=== PATIENT | male | born 1975 | race Caucasian/White ===

== ENCOUNTER 2018-05-08 17:23 | Observation (INO) ==
--- NOTE | 2018-05-08 17:32 | Emergency Department Note ---
ED Disposition Clinical Impression: Dehydration, Loss of consciousness Acute renal failure Qualifiers: Acute renal failure type: unspecified Qualified Code(s): N17.9 - Acute kidney failure, unspecified Scalp laceration Qualifiers: Encounter type: initial encounter Qualified Code(s): S01.01XA - Laceration without foreign body of scalp, initial encounter Disposition: Still a Patient Condition on Discharge: [facility] - Critical Care Critical Care Time: No Attestation: On , the high probability of a clinically significant, sudden or life threatening deterioration of the following system(s) required my full and direct attention, intervention and personal management. The time I documented below is in addition to time spent performing reported procedures but includes the following listed in this critical care notation. Medical Decision Making - Cuong Inquiry Pt receiving controlled substance: No Cuong was queried for this patient: Yes Reference #:: [id number] Comment: 0 rxs. Vital Signs: 05/08/18 17:24 Temperature 98.0 F Temperature Source Oral Pulse Rate [Right Brachial] 128 H Respiratory Rate 18 Blood Pressure [179/102] 179/102 Blood Pressure Mean [179/102] 127 Blood Pressure Source [179/102] Automatic Cuff Blood Pressure Position [179/102] Sitting 02 Sat by Pulse Oximetry 97 Oxygen Delivery Method Room Air - Lab Data Lab Results 05/08/18 17:50: WBC 11.7 H, RBC 5.53, Hgb 16.1, Hct 48.5, MCV 87.7, MCH 29.1, MCHC 33.2, RDW 13.5, Plt Count 216, MPV 10.2, Neut % (Auto) 54.2, Lymph % (Auto ) 29.6, [facility] % (Auto) 14.7 H, Eos % (Auto) 1.2, Baso % (Auto) 0.3, Neut # (Auto ) 6.4, Lymph # (Auto) 3.5, [facility] # (Auto) 1.7 H, Eos # (Auto) 0.1, Baso # (Auto) 0.0 05/08/18 17:50: Sodium 135 L, Potassium 3.3 L, Chloride 99, Carbon Dioxide 19 L , Anion Gap 20.3 H, BUN 29 H, Creatinine 2.30 H, Estimated Creat Clear 53, Estimated GFR 31 L, Est GFR ( Amer) 38 L, Glucose 156 H, Calcium 9.9, Total Bilirubin 1.4 H, AST 30, ALT 39, Alkaline Phosphatase 86, Total Protein 9.3 H, Albumin 5.1 H, Globulin 4.2 H, Albumin/Globulin Ratio 1.2, Lipase 90, Plasma/Serum Alcohol 0 05/08/18 17:50: Ammonia 64 H 05/08/18 17:50: Lactic Acid 5.6 H 05/08/18 17:50: Total Creatine Kinase 553 H*, CK-MB (CK-2) 2.6, CK-MB (CK-2) Rel Index 0.5, Troponin I < 0.02 Result diagrams: 05/08/18 17:50 05/08/18 17:50 Orders (Tests/Meds): ED MEDICATIONS Discontinued Medications Generic Name Dose Route Start Last Admin Trade Name Freq PRN Reason Stop Dose Admin Lidocaine/Epinephrine 10 ml 05/08/18 17:39 05/08/18 17:45 Lidocaine 2% W/Epi 1:100,000 20ml Vial IJ 05/08/18 17:40 1 dose ONCE ONE Administration Sodium Chloride 1,000 ml 05/08/18 18:22 05/08/18 18:30 Sod Chlor 0.9% 1000ml Bag IV 05/08/18 18:23 1,000 ml BOLUS ONE Administration Tetanus/Reduced Diphtheria/Acell Pertussis 0.5 ml 05/08/18 17:33 05/08/18 17: 44 Adacel Tdap 0.5ml Syringe IM 05/08/18 17:34 0.5 ml .ONCE ONE Administration ORDERS Category Date Time Status CT head/brain wo con Stat Cat Scan 05/08/18 17:30 Taken Drug Screen,Urine Stat Lab 05/08/18 Ordered Blood Culture Stat Micro 05/08/18 17:50 Received - CT Data CT Scan: Head Time Received: 18:[address] Reviewed: Yes: I have viewed the radiologist's interpretation Findings Narrative: CT scan interpreted by [facility] radiologist. Faxed report received and reviewed: No acute intracranial abnormality - ECG Data Tracing #1 EKG interpreted by Desmond Quinteros MD: Rhythm: sinus Rate: 97 [place]: normal Ectopy: none Conduction: normal ST Segment Changes: none T Wave Changes: none Q Waves: Inferior No evidence of acute ischemia or injury - Physician Consults Physician Consulted: Gabby Time: 19:20 Reason -: Admission Comment/Response: Agrees to admit the patient to the hospital. We discussed the patient's clinical information, including history, exam, laboratory and radiology results and ED course. Per hospital procedure, I will write temporary bridge inpatient orders on the patient. Specific orders requested by the admitting physician: Continue IV fluids, recheck labs in the morning General Adult HPI - General Chief complaint: Altered Mental Status Stated complaint: OD VS SEIZURE Time Seen by Provider: 05/08/18 17:32 Mode of Arrival: EMS Limitations: No Limitations Description of Symptoms (Recalled from ER Triage Doc. by RN): PT FOUND "UNRESPONSIVE" IN PARKING LOT; WITNESSES THOUGHT MAYBE HAD HAD A SEIZURE BUT HE THEN WAS FOUND TO HAVE METH ON HIS LAP. PT FURTHER STATES HE IS "OK" - History of Present Illness HPI narrative: Poor historian and difficult to understand. Rapid speech. Brought in by EMS. Suspected seizure. Patient states somebody told him they thought he had a seizure. Details unknown. EMS reports that they found him in a parking lot in a state that they thought might be post ictal. He was not making any sense. Has a small laceration of the back of his head. Patient does not recall what happened. Police reportedly stated that that they found "meth" in his lap, but the patient denies any drug use except taking a pill from a friend today. He states that he is on medications, but has been out of them for 1 month. He smokes cigarettes. Denies using any alcohol for years. He has never had a seizure. He does not know when his last tetanus immunization was. Frequently complaining of excessively dry mouth and extreme thirst in the emergency room. - Related Data Allergies Allergy/AdvReac Type Severity Reaction Status Date / Time hydrocodone [HYDROCODONE] Allergy Unknown Verified 05/08/18 17:44 Penicillins [PENICILLINS] Allergy Unknown Verified 05/08/18 17:44 [facility] History I have reviewed the patient's past medical history: Yes - Social History Alcohol Intake: former Alcohol Intake Frequency:: holidays/special occasions only Substance Use Type: methamphetamine - Psychiatric History Expresses thoughts of harming self/others: None Suicide Plan Description: No Plan ROS Obtained: Yes All systems reviewed & no additional complaints - Constitutional Constitutional: Denies fever(s) - Eyes Eyes: Denies change in vision - Cardiovascular Cardiovascular: Denies chest pain - Respiratory Respiratory: No dyspnea - Gastrointestinal Gastrointestingal: Denies: abdominal pain, diarrhea, nausea, vomiting - Neurologic Neurologic: Denies headache(s), Denies numbness, Denies weakness Physical Exam - General General appearance: alert, in no apparent distress, anxious Comment: Rapid speech, difficult to understand - Head Head exam: other (4 cm laceration on the crown of his head. [place] intact.) - Eye Eye exam: Present: normal appearance, PERRL, EOMI - ENT ENT exam: Present: normal exam, normal oropharynx, mucous membranes moist, TM's normal bilaterally, normal external ear exam - Neck Neck exam: Present: normal inspection, full ROM, trachea midline. Absent: meningismus, lymphadenopathy - Chest Chest inspection: Present: normal inspection, symmetric chest wall rise. Absent : tenderness - Respiratory Respiratory exam: Present: normal lung sounds bilaterally. Absent: respiratory distress - Cardiovascular Cardiovascular exam: Present: normal rhythm, tachycardia. Absent: JVD - Abdominal Exam Abdominal exam: Present: soft, normal bowel sounds. Absent: distention, tenderness, guarding - Extremities Exam Extremities exam: Present: normal inspection, full ROM, normal capillary refill. Absent: calf tenderness - Back Exam Back exam: Present: normal inspection. Absent: tenderness - Neurological Exam Neurological exam: Present: alert, CN II-XII intact, motor sensory deficit, other (Oriented to person and place, states he does not keep up with the year or date) - Psychiatric Psychiatric exam: Present: anxious - Skin Skin exam: Present: warm, dry, intact, normal color - Lymphatic Lymphatic Findings: no adenopathy Procedures - Miscellaneous Procedure Procedure Performed: Laceration Repair Performed by: DESMOND QUINTEROS Consent: Verbal consent obtained. Risks and benefits: risks, benefits and alternatives were discussed Consent given by: patient Patient identity confirmed: verbally with patient Laceration location: Scalp Laceration length: 4 cm Local anesthetic: 2% lidocaine with epinephrine Wound prep: Sterilly scrubbed with Hibiclens and irrigated with copious normal saline. Draping: Sterile in usual manner Patient sedated: no Debridement: None Exploration: No foreign bodies or deep structure injury Layers Closed: Skin Suture material, skin: [place] Number of sarah:10 Patient tolerance: Patient tolerated the procedure well with no immediate complications
[2018-05-08 18:00] LABS: Basophils % 0.3 % (0.1-2.0); Eosinophils # 0.1 K/mm3 (0.0-0.4); Eosinophils % 1.2 % (0.1-12.0); Hematocrit 48.5 % (42.0-52.0); Hemoglobin 16.1 g/dL (14.1-18.0); Lymphocytes # 3.5 K/mm3 (0.7-4.5); Lymphocytes % 29.6 K/mm3 (10-50); Mean Corpuscular HGB Conc 33.2 g/dL (31.8-35.4); Mean Corpuscular Hemoglobin 29.1 pg (27.0-31.2); Mean Corpuscular Volume 87.7 fl (80-94); Mean Platelet Volume 10.2 fl (7.4-10.4); Monocytes # 1.7 K/mm3 (0.1-1.0); Monocytes % 14.7 % (1.7-9.3); Neutrophils # 6.4 K/mm3 (1.8-7.8); Neutrophils % 54.2 % (37.0-80.0); Platelet Count 216 K/mm3 (142-424); Red Blood Count 5.53 M/mm3 (4.60-6.20); Red Cell Distribution Width 13.5 % (11.5-17.5); White Blood Count 11.7 K/mm3 (4.8-10.8)
[2018-05-08 18:15] LABS: Albumin Level 5.1 gm/dL (3.4-5.0); Albumin/Globulin Ratio 1.2 (1.1-1.8); Anion Gap 20.3 mEq/L (5-15); Bilirubin,Total 1.4 mg/dL (0.2-1.0); Calcium 9.9 mg/dL (8.5-10.1); Globulin 4.2 gm/dl (1.3-3.2); Potassium 3.3 mmoL/L (3.5-5.1); Total Protein,Serum 9.3 gm/dL (6.4-8.2)
[2018-05-08 18:23] LABS: Creatine Kinase 553 U/L (39-308)
[2018-05-08 23:39] LABS: Amphetamine/Metha Screen,Urine Positive ng/mL (<1000); Barbiturates Screen,Urine Negative ng/mL (<200); Benzodiazepines Screen,Urine Negative ng/mL (<200); Cannabinoid Screen,Urine Negative ng/mL (<50); Cocaine Screen,Urine Negative ng/mL (<300); Methadone Screen,Urine Negative ng/mL (<300); Opiate Screen,Urine Negative ng/mL (<300); Phencyclidine Screen,Urine Negative ng/mL (<25)
[2018-05-09 06:34] LABS: Anion Gap 12.9 mEq/L (5-15)
[2018-05-09 06:39] LABS: Potassium 2.9 mmoL/L (3.5-5.1)
--- NOTE | 2018-05-09 07:50 | Pharmacy Consult Notes ---
[facility] Pharmacy VTE Monitoring - Patient Demographics Admission date: 05/08/18 Report Date: 05/09/18 Time: 07:50 Allergies/Adverse Reactions: Patient Allergies hydrocodone [HYDROCODONE] Allergy (Unknown, Verified 05/08/18 17:44) Penicillins [PENICILLINS] Allergy (Unknown, Verified 05/08/18 17:44) Height: 1.85 m Weight: 101.605 kg Patient Problems: Current Active Problems Acute renal failure (Acute) Dehydration (Acute) Loss of consciousness (Acute) Scalp laceration (Acute) - VTE Risk Labs: VTE Related Lab Results Hgb 16.1 g/dL (14.1-18.0) 05/08/18 17:50 Hct 48.5 % (42.0-52.0) 05/08/18 17:50 Plt Count 216 K/mm3 (142-424) 05/08/18 17:50 BUN 16 mg/dL (7-18) D 05/09/18 05:58 Creatinine 1.17 mg/dL (0.70-1.30) D 05/09/18 05:58 Estimated Creat Clear 117 mL/min (0-300) 05/09/18 05:58 VTE Score: 5 VTE Risk Level: Low Risk - Prophylaxis VTE Prophylaxis Ordered?: Yes Types of VTE Prophylaxis: TEDS Knee High Location of Applied Device: Bilateral Lower Extremeties - VTE Diagnosis Confirmed Treatment or plan recommended: Continue Current Treatment
--- NOTE | 2018-05-09 09:20 | History & Physical Report ---
*Admission Date: 05/08/18 <Fiona Liao 05/09/18 09:20> *Chief complaint: headache <Fiona Liao 05/09/18 13:07> *History of present illness: Mr. Avina is a 43-year-old male who is brought to the hospital by EMS. Following note is from the ER Patient remains a poor historian. He has rambling speech and is difficult to understand. Brought in by EMS. Suspected seizure. Patient stated somebody told him they thought he had a seizure. Details unknown. EMS reports that they found him in a parking lot in a state that they thought might be post ictal. He was not making any sense. A small laceration of the back of his head was noted. Patient does not recall what happened. Police reportedly stated that that they found "meth" in his lap, but the patient denies any drug use except taking a pill from a friend today. He states that he is on medications, but has been out of them for 1 month. He smokes cigarettes. Denies using any alcohol for years. He has never had a seizure. He does not know when his last tetanus immunization was. Frequently complaining of excessively dry mouth and extreme thirst in the emergency room. He had a small laceration to the top of his head which was stapled in the emergency room. CT of the head was negative. He was admitted for further evaluation and treatment. This a.m. at time of exam patient is very agitated. Speech remains rambling and unclear. He denies chest pain and shortness of breath. He states that he has a headache. He request medicines but does not know what medicine he needs. <KeshawnFiona 05/09/18 13:07> [facility] History Medical History: Reports:: Asthma, Depression, Hypertension, MRSA (right arm) Denies:: Cancer, Diabetes Mellitus Type 1, Diabetes Mellitus Type 2 < Fiona Liao 05/09/18 13:07> Other Surgeries: Yes: Hernia Repair <Fiona Liao 05/09/18 09:20> Amputation: No <Fiona Liao 05/09/18 09:20> Fractures: No <Fiona Liao 05/09/18 09:20> - *Social History Educational Level: Attended Grade School <Fiona Liao 05/09/18 09:20> Smoking Status: Current every day smoker <LiaoFiona - 05/09/18 09:20> Tobacco Type: cigarettes <LiaoFiona 05/09/18 09:20> # Packs/Day (cigarettes): 1 <LiaoFiona - 05/09/18 09:20> #Yrs smoked (if former smoker): 30 <Liao,Fiona 05/09/18 09:20> Alcohol Intake: former <Fiona Liao 05/09/18 09:20> Alcohol Intake Frequency:: holidays/special occasions only <Liao,Fiona 09:20> Substance Use Type: painkillers <Fiona Liao 05/09/18 09:20> Last Used Substance: days (ago) <Fiona Liao 05/09/18 09:20> Occupational Status: disabled <Fiona Liao 05/09/18 09:20> Housing: house <Fiona Liao 05/09/18 09:20> Household Members: family <LiaoFiona - 05/09/18 09:20> - Psychiatric History Expresses thoughts of harming self/others: None <Fiona Liao 05/09/18 09: 20> Suicide Plan Description: No Plan <Fiona Liao 05/09/18 09:20> Pschychiatric History:: Reports:: Schizophrenia <Fiona Liao 05/09/18 13: 07> *Family Hx:: Unable to obtain <Fiona Laio 05/09/18 13:07> Review of Systems - *Neurologic Denies headache(s), Denies numbness, Denies weakness <Fiona Liao 09:20> Meds Home Medications Medication Instructions Recorded Confirmed Type Buspirone HCl [Buspar 10mg tablet] 10 mg PO BID 05/08/18 05/08/18 History Fluoxetine HCl [Prozac] 40 mg PO DAILY 05/08/18 05/08/18 History Metoprolol Tartrate [Lopressor 25 mg PO BID 05/08/18 05/08/18 History 25mg tablet] OLANZapine [Zyprexa] 15 mg PO HS 05/08/18 05/08/18 History Omeprazole [Omeprazole 20mg Tab] 20 mg PO DAILY 05/08/18 05/08/18 History <Raman Pierre - 05/09/18 13:24> Allergies Allergy/AdvReac Type Severity Reaction Status Date / Time hydrocodone [HYDROCODONE] Allergy Unknown Verified 05/08/18 17:44 Penicillins [PENICILLINS] Allergy Unknown Verified 05/08/18 17:44 <Raman Pierre - 05/09/18 13:24> Exam Vital signs and Labs for Last 24 Hours: Temp Pulse Resp BP Pulse Ox 98.5 F 101 H 20 116/78 98 05/09/18 08:00 05/09/18 08:00 05/09/18 08:00 05/09/18 08:00 05/09/18 08:00 Laboratory Results - last 24 hr 05/08/18 17:50: WBC 11.7 H, RBC 5.53, Hgb 16.1, Hct 48.5, MCV 87.7, MCH 29.1, MCHC 33.2, RDW 13.5, Plt Count 216, MPV 10.2, Neut % (Auto) 54.2, Lymph % (Auto ) 29.6, [place] % (Auto) 14.7 H, Eos % (Auto) 1.2, Baso % (Auto) 0.3, Neut # (Auto ) 6.4, Lymph # (Auto) 3.5, [place] # (Auto) 1.7 H, Eos # (Auto) 0.1, Baso # (Auto) 0.0 05/08/18 17:50: Sodium 135 L, Potassium 3.3 L, Chloride 99, Carbon Dioxide 19 L , Anion Gap 20.3 H, BUN 29 H, Creatinine 2.30 H, Estimated Creat Clear 53, Estimated GFR 31 L, Est GFR ( Amer) 38 L, Glucose 156 H, Calcium 9.9, Total Bilirubin 1.4 H, AST 30, ALT 39, Alkaline Phosphatase 86, Total Protein 9.3 H, Albumin 5.1 H, Globulin 4.2 H, Albumin/Globulin Ratio 1.2, Lipase 90, Plasma/Serum Alcohol 0 05/08/18 17:50: Ammonia 64 H 05/08/18 17:50: Lactic Acid 5.6 H 05/08/18 17:50: Total Creatine Kinase 553 H*, CK-MB (CK-2) 2.6, CK-MB (CK-2) Rel Index 0.5, Troponin I < 0.02 05/08/18 21:50: Lactic Acid Fup @ 4Hr 1.4 05/08/18 23:15: Urine Opiates Screen Negative, Urine Methadone Screen Negative, Ur Barbituates Screen Negative, Ur Phencyclidine Scrn Negative, Ur Amphetamines Screen Positive H, U Benzodiazepines Scrn Negative, Urine Cocaine Screen Negative, U Marijuana (THC) Screen Negative 05/09/18 05:58: Sodium 136, Potassium 2.9 L*, Chloride 103, Carbon Dioxide 23 D , Anion Gap 12.9, BUN 16 D, Creatinine 1.17 D, Estimated Creat Clear 117, Estimated GFR 68, Est GFR ( Amer) 82 D, Glucose 111 H D, Calcium 8.0 L D <Raman Pierre - 05/09/18 13:24> Temp Pulse Resp BP Pulse Ox 98.5 F 101 H 20 116/78 98 05/09/18 08:00 05/09/18 08:00 05/09/18 08:00 05/09/18 08:00 05/09/18 08:00 Laboratory Results - last 24 hr 05/08/18 17:50: WBC 11.7 H, RBC 5.53, Hgb 16.1, Hct 48.5, MCV 87.7, MCH 29.1, MCHC 33.2, RDW 13.5, Plt Count 216, MPV 10.2, Neut % (Auto) 54.2, Lymph % (Auto ) 29.6, [place] % (Auto) 14.7 H, Eos % (Auto) 1.2, Baso % (Auto) 0.3, Neut # (Auto ) 6.4, Lymph # (Auto) 3.5, [place] # (Auto) 1.7 H, Eos # (Auto) 0.1, Baso # (Auto) 0.0 05/08/18 17:50: Sodium 135 L, Potassium 3.3 L, Chloride 99, Carbon Dioxide 19 L , Anion Gap 20.3 H, BUN 29 H, Creatinine 2.30 H, Estimated Creat Clear 53, Estimated GFR 31 L, Est GFR ( Amer) 38 L, Glucose 156 H, Calcium 9.9, Total Bilirubin 1.4 H, AST 30, ALT 39, Alkaline Phosphatase 86, Total Protein 9.3 H, Albumin 5.1 H, Globulin 4.2 H, Albumin/Globulin Ratio 1.2, Lipase 90, Plasma/Serum Alcohol 0 05/08/18 17:50: Ammonia 64 H 05/08/18 17:50: Lactic Acid 5.6 H 05/08/18 17:50: Total Creatine Kinase 553 H*, CK-MB (CK-2) 2.6, CK-MB (CK-2) Rel Index 0.5, Troponin I < 0.02 05/08/18 21:50: Lactic Acid Fup @ 4Hr 1.4 05/08/18 23:15: Urine Opiates Screen Negative, Urine Methadone Screen Negative, Ur Barbituates Screen Negative, Ur Phencyclidine Scrn Negative, Ur Amphetamines Screen Positive H, U Benzodiazepines Scrn Negative, Urine Cocaine Screen Negative, U Marijuana (THC) Screen Negative 05/09/18 05:58: Sodium 136, Potassium 2.9 L*, Chloride 103, Carbon Dioxide 23 D , Anion Gap 12.9, BUN 16 D, Creatinine 1.17 D, Estimated Creat Clear 117, Estimated GFR 68, Est GFR ( Amer) 82 D, Glucose 111 H D, Calcium 8.0 L D <Fiona Liao - 05/09/18 13:07> I & O for Last 24 hours: Intake & Output 05/07/18 05/08/18 05/09/18 05/10/18 11:59 11:59 11:59 11:59 Intake Total 1748 / 1748 Output Total 800 / 800 Balance 948 / 948 Weight 224 lb <Stanton,Raman - 05/09/18 13:24> Intake & Output 05/06/18 05/07/18 05/08/18 05/09/18 11:59 11:59 11:59 11:59 Intake Total 1678 / 1678 Output Total 800 / 800 Balance 878 / 878 Weight 224 lb <Fiona Liao - 05/09/18 09:20> Radiology Reports for the Last 24 Hours: 05/08/18 CT of the head IMPRESSION: 1. No acute intracranial finding. 2. Left parietal scalp hematoma with skin sarah <Fiona Liao - 05/09/18 13:07> - Constitutional agitated <Fiona Liao - 05/09/18 13:07> - *Routine HEENT Exam Head: Present: normocephalic ([place] in top of the head) <Fiona Liao - 12/26 13:07> Comments: unable to exam at this time due to agitation <Fiona Liao 05/09/18 13:07> - *Routine Respiratory Exam Present: CTA bilaterally (A&P) <Fiona Liao 05/09/18 13:07> - *Routine Cardiovascular Exam Present: RRR <Fiona Liao 05/09/18 13:07> - *Routine Extremities Exam Absent: edema, calf tenderness <Fiona Liao 05/09/18 13:07> - *Routine Neurological Exam Present: altered mental status, tremors. Absent: normal speech <Fiona Liao 05/09/18 13:07> rambling unclear speech <Fiona Liao 05/09/18 13:07> - Routine Psychiatric Exam Present: agitated <Fiona Liao 05/09/18 13:07> H&P: Result - Labs Labs: Short CBC 05/08/18 Range/Units 17:50 WBC 11.7 H (4.8-10.8) K/mm3 Hgb 16.1 (14.1-18.0) g/dL Hct 48.5 (42.0-52.0) % Plt Count 216 (142-424) K/mm3 BMP 05/08/18 05/09/18 17:50 05:58 Sodium 135 L 136 Potassium 3.3 L 2.9 L* Chloride 99 103 Carbon Dioxide 19 L 23 D BUN 29 H 16 D Creatinine 2.30 H 1.17 D Glucose 156 H 111 H D Calcium 9.9 8.0 L D Cardiac Enzymes 05/08/18 Range/Units 17:50 Total Creatine Kinase 553 H* (39-308) U/L CK-MB (CK-2) 2.6 (0.0-3.6) ng/ml Troponin I < 0.02 (0.00-0.06) ng/ml Liver Function 05/08/18 Range/Units 17:50 Total Bilirubin 1.4 H (0.2-1.0) mg/dL AST 30 (15-37) U/L ALT 39 (12-78) U/L Alkaline Phosphatase 86 (46-116) U/L Albumin 5.1 H (3.4-5.0) gm/dL <Raman Pierre - 05/09/18 13:24> Short CBC 05/08/18 Range/Units 17:50 WBC 11.7 H (4.8-10.8) K/mm3 Hgb 16.1 (14.1-18.0) g/dL Hct 48.5 (42.0-52.0) % Plt Count 216 (142-424) K/mm3 BMP 05/08/18 05/09/18 17:50 05:58 Sodium 135 L 136 Potassium 3.3 L 2.9 L* Chloride 99 103 Carbon Dioxide 19 L 23 D BUN 29 H 16 D Creatinine 2.30 H 1.17 D Glucose 156 H 111 H D Calcium 9.9 8.0 L D Cardiac Enzymes 05/08/18 Range/Units 17:50 Total Creatine Kinase 553 H* (39-308) U/L CK-MB (CK-2) 2.6 (0.0-3.6) ng/ml Troponin I < 0.02 (0.00-0.06) ng/ml Liver Function 05/08/18 Range/Units 17:50 Total Bilirubin 1.4 H (0.2-1.0) mg/dL AST 30 (15-37) U/L ALT 39 (12-78) U/L Alkaline Phosphatase 86 (46-116) U/L Albumin 5.1 H (3.4-5.0) gm/dL <Fiona Liao - 05/09/18 09:20> Assessment and Plan (1) Agitation Current visit: Yes Status: Acute Category: Medical Code(s): R45.1 - Restlessness and agitation (2) Loss of consciousness Current visit: Yes Status: Acute Category: Medical Code(s): R40.20 - Unspecified coma (3) HTN (hypertension) Current visit: Yes Status: Acute Category: Medical Code(s): I10 - Essential (primary) hypertension (4) Dehydration Current visit: Yes Status: Acute Category: Medical Code(s): E86.0 - Dehydration (5) Hypokalemia Current visit: Yes Status: Acute Category: Medical Code(s): E87.6 - Hypokalemia (6) Scalp laceration Current visit: Yes Status: Acute Qualifiers: Encounter type: initial encounter Qualified Code(s): S01.01XA - Laceration without foreign body of scalp, initial encounter Category: Medical Code(s): S01.01XA - Laceration without foreign body of scalp , initial encounter (7) FRANKI (acute kidney injury) Current visit: Yes Status: Acute Category: Medical Code(s): N17.9 - Acute kidney failure, unspecified (8) Methamphetamine abuse Current visit: Yes Status: Acute Category: Medical Code(s): F15.10 - Other stimulant abuse, uncomplicated (9) Psychiatric disorder Current visit: Yes Status: Acute Category: Medical Code(s): F99 - Mental disorder, not otherwise specified <Raman Pierre - 05/09/18 13:24> (1) Agitation Current visit: Yes Status: Acute Category: Medical Code(s): R45.1 - Restlessness and agitation (2) Loss of consciousness Current visit: Yes Status: Acute Category: Medical Code(s): R40.20 - Unspecified coma (3) HTN (hypertension) Current visit: Yes Status: Acute Category: Medical Code(s): I10 - Essential (primary) hypertension (4) Dehydration Current visit: Yes Status: Acute Category: Medical Code(s): E86.0 - Dehydration (5) Hypokalemia Current visit: Yes Status: Acute Category: Medical Code(s): E87.6 - Hypokalemia (6) Scalp laceration Current visit: Yes Status: Acute Qualifiers: Encounter type: initial encounter Qualified Code(s): S01.01XA - Laceration without foreign body of scalp, initial encounter Category: Medical Code(s): S01.01XA - Laceration without foreign body of scalp , initial encounter <Fiona Liao - 05/09/18 12:38> - Assessment and plan all Dx Assessment and Plan for all problems:: Saw patient agree with above note, Renal function has improved with IVF, patient is calmer now after receiving Ativan. <Raman Pierre - 05/09/18 13:24> IVF; IV KCL; IV Ativan prn; started back on some of previous regular meds <Fiona Liao - 05/09/18 13:07>
[2018-05-10 06:29] LABS: Basophils % 0.6 % (0.1-2.0); Eosinophils # 0.3 K/mm3 (0.0-0.4); Eosinophils % 5.6 % (0.1-12.0); Hematocrit 38.4 % (42.0-52.0); Hemoglobin 12.4 g/dL (14.1-18.0); Lymphocytes % 41.9 K/mm3 (10-50); Mean Corpuscular HGB Conc 32.4 g/dL (31.8-35.4); Mean Corpuscular Hemoglobin 28.9 pg (27.0-31.2); Mean Corpuscular Volume 89.3 fl (80-94); Mean Platelet Volume 10.5 fl (7.4-10.4); Monocytes # 0.5 K/mm3 (0.1-1.0); Neutrophils % 40.8 % (37.0-80.0); Platelet Count 112 K/mm3 (142-424); Red Cell Distribution Width 13.4 % (11.5-17.5); White Blood Count 4.8 K/mm3 (4.8-10.8)
[2018-05-10 06:38] LABS: Anion Gap 10.8 mEq/L (5-15); Calcium 8.1 mg/dL (8.5-10.1); Potassium 3.8 mmoL/L (3.5-5.1)
[2018-05-10 08:37] VITALS: BP 108/69
--- NOTE | 2018-05-10 09:03 | Progress Note ---
Internal Medicine - PN: Subj *Date: 05/10/18 *Time: 09:01 Interval history: Patient had a much better night last night, tolerating a regular diet, slept well. Exam Vital signs and Labs for Last 24 Hours: Temp Pulse Resp BP Pulse Ox 97.5 F L 71 20 108/69 98 05/10/18 08:00 05/10/18 08:00 05/10/18 08:00 05/10/18 08:00 05/10/18 08:00 Laboratory Results - last 24 hr 05/10/18 06:08: WBC 4.8 D, RBC 4.30 L, Hgb 12.4 L, Hct 38.4 L, MCV 89.3, MCH 28.9, MCHC 32.4, RDW 13.4, Plt Count 112 L D, MPV 10.5 H, Neut % (Auto) 40.8, Lymph % (Auto) 41.9, [place] % (Auto) 11.0 H, Eos % (Auto) 5.6, Baso % (Auto) 0.6, Neut # (Auto) 2.0, Lymph # (Auto) 2.0, [place] # (Auto) 0.5, Eos # (Auto) 0.3, Baso # (Auto) 0.0 05/10/18 06:08: Sodium 140, Potassium 3.8 D, Chloride 108 H, Carbon Dioxide 25 , Anion Gap 10.8, BUN 10 D, Creatinine 0.97, Estimated Creat Clear 141, Estimated GFR 84, Est GFR ( Amer) 102 D, Glucose 108 H, Calcium 8.1 L I & O for Last 24 hours: Intake & Output 05/07/18 05/08/18 05/09/18 05/10/18 11:59 11:59 11:59 11:59 Intake Total 1748 / 1748 3275 / 3275 Output Total 800 / 800 Balance 948 / 948 3275 / 3275 Weight 224 lb - Constitutional no acute distress - *Routine HEENT Exam ENT: Present: mucous membranes moist - *Routine Respiratory Exam Present: CTA bilaterally - *Routine Cardiovascular Exam Present: RRR Assessment and Plan (1) Agitation Current visit: Yes Status: Acute Category: Medical Code(s): R45.1 - Restlessness and agitation (2) Loss of consciousness Current visit: Yes Status: Acute Category: Medical Code(s): R40.20 - Unspecified coma (3) HTN (hypertension) Current visit: Yes Status: Acute Category: Medical Code(s): I10 - Essential (primary) hypertension (4) Dehydration Current visit: Yes Status: Acute Category: Medical Code(s): E86.0 - Dehydration (5) Hypokalemia Current visit: Yes Status: Acute Category: Medical Code(s): E87.6 - Hypokalemia (6) Scalp laceration Current visit: Yes Status: Acute Qualifiers: Encounter type: initial encounter Qualified Code(s): S01.01XA - Laceration without foreign body of scalp, initial encounter Category: Medical Code(s): S01.01XA - Laceration without foreign body of scalp , initial encounter (7) FRANKI (acute kidney injury) Current visit: Yes Status: Acute Category: Medical Code(s): N17.9 - Acute kidney failure, unspecified (8) Methamphetamine abuse Current visit: Yes Status: Acute Category: Medical Code(s): F15.10 - Other stimulant abuse, uncomplicated (9) Psychiatric disorder Current visit: Yes Status: Acute Category: Medical Code(s): F99 - Mental disorder, not otherwise specified - Assessment and plan all Dx Assessment and Plan for all problems:: Labs have improved. Patient OK for discharge today. He needs to f/u with his primary MD for staple removal from scalp in 1 week.
--- NOTE | 2018-05-10 16:14 | Discharge Summary ---
General - General Admission date:: 05/08/18 Discharge date: 05/10/18 HPI HPI: Mr. Avina is a 43-year-old male who is brought to the hospital by EMS. Following note is from the ER Patient remains a poor historian. He has rambling speech and is difficult to understand. Brought in by EMS. Suspected seizure. Patient stated somebody told him they thought he had a seizure. Details unknown. EMS reports that they found him in a parking lot in a state that they thought might be post ictal. He was not making any sense. A small laceration of the back of his head was noted. Patient does not recall what happened. Police reportedly stated that that they found "meth" in his lap, but the patient denies any drug use except taking a pill from a friend today. He states that he is on medications, but has been out of them for 1 month. He smokes cigarettes. Denies using any alcohol for years. He has never had a seizure. He does not know when his last tetanus immunization was. Frequently complaining of excessively dry mouth and extreme thirst in the emergency room. He had a small laceration to the top of his head which was stapled in the emergency room. CT of the head was negative. He was admitted for further evaluation and treatment. This a.m. at time of exam patient is very agitated. Speech remains rambling and unclear. He denies chest pain and shortness of breath. He states that he has a headache. He request medicines but does not know what medicine he needs. Hospital Course Hospital Course: The patient's potassium was low at 2.9. He was started on IVF, IV KCL,IV Ativan prn, and was started back on some of his previous regular meds. The patient's potassium improved and he felt much better by the next day. He was tolerating a diet and the rest of his labs improved as well. He was stable for discharge and will f/u with his primary MD for staple removal from scalp in 1 week. Objective Vital signs: Temp Pulse Resp BP Pulse Ox 97.5 F L 71 20 108/69 98 05/10/18 08:00 05/10/18 08:00 05/10/18 08:00 05/10/18 08:00 05/10/18 08:00 Narrative: - Constitutional agitated - *Routine HEENT Exam Head: Present: normocephalic ([place] in top of the head) Comments: unable to exam at this time due to agitation - *Routine Respiratory Exam Present: CTA bilaterally (A&P) - *Routine Cardiovascular Exam Present: RRR - *Routine Extremities Exam Absent: edema, calf tenderness - *Routine Neurological Exam Present: altered mental status, tremors. Absent: normal speech rambling unclear speech - Routine Psychiatric Exam Present: agitated Results Labs on day of discharge: Labs from last 24 hours 05/10/18 05/10/18 06:08 06:08 WBC 4.8 D RBC 4.30 L Hgb 12.4 L Hct 38.4 L MCV 89.3 MCH 28.9 MCHC 32.4 RDW 13.4 Plt Count 112 L D MPV 10.5 H Neut % (Auto) 40.8 Lymph % (Auto) 41.9 [place] % (Auto) 11.0 H Eos % (Auto) 5.6 Baso % (Auto) 0.6 Neut # (Auto) 2.0 Lymph # (Auto) 2.0 [place] # (Auto) 0.5 Eos # (Auto) 0.3 Baso # (Auto) 0.0 Sodium 140 Potassium 3.8 D Chloride 108 H Carbon Dioxide 25 Anion Gap 10.8 BUN 10 D Creatinine 0.97 Estimated Creat Clear 141 Estimated GFR 84 Est GFR ( Amer) 102 D Glucose 108 H Calcium 8.1 L DS: Diagnosis - Discharge Diagnosis (1) Agitation Status: Acute (2) Loss of consciousness Status: Acute (3) HTN (hypertension) Status: Acute (4) Dehydration Status: Acute (5) Hypokalemia Status: Acute (6) Scalp laceration Status: Acute (7) FRANKI (acute kidney injury) Status: Acute (8) Methamphetamine abuse Status: Acute (9) Psychiatric disorder Status: Acute Discharge Plan - Patient Discharge Instructions ACTIVITY: Continue current activity DIET: continue same diet Patient Instructions: DI for Laceration Repair -- [place] - Follow up Plan Unknown provider or service follow up:: Follow up with primary MD in 1 week for staple removal. Disposition: Home, Self-Custodial Medications: Home Medications Medication Instructions Recorded Confirmed Type Buspirone HCl [Buspar 10mg tablet] 10 mg PO BID 05/08/18 05/08/18 History Fluoxetine HCl [Prozac] 40 mg PO DAILY 05/08/18 05/08/18 History Metoprolol Tartrate [Lopressor 25 mg PO BID 05/08/18 05/08/18 History 25mg tablet] OLANZapine [Zyprexa] 15 mg PO HS 05/08/18 05/08/18 History Omeprazole [Omeprazole 20mg Tab] 20 mg PO DAILY 05/08/18 05/08/18 History Prescriptions/Medication Reconciliation: Continue Omeprazole [Omeprazole 20mg Tab] 20 mg PO DAILY OLANZapine [Zyprexa] 15 mg PO HS Fluoxetine HCl [Prozac] 40 mg PO DAILY Buspirone HCl [Buspar 10mg tablet] 10 mg PO BID Metoprolol Tartrate [Lopressor 25mg tablet] 25 mg PO BID
== END 2018-05-10 09:53 | disposition home or self-care (01) ==
LOC: ER 17:23 → 2ND 17:23
PROVIDERS: ADMIT Family Medicine; ATTEND Family Medicine

== ENCOUNTER 2021-05-24 18:47 | Emergency (ER) | payer MEDICARE, OTHER, SELFPAY ==
[2021-05-24 18:47] VITALS: BP 143/87; PULSE 103; RESP 16; TEMP 37.8; O2SAT 95; BMI 40.6
--- NOTE | 2021-05-24 18:50 | HMH.EDCP ---
ED Disposition Clinical Impression: Atypical chest pain Disposition: Home, Self-Care Condition on Discharge: Good Instructions: DI for Atypical Chest Pain Prescriptions: hydrOXYzine HCL [Hydroxyzine HCl] 50 mg PO Q8H PRN #30 tab PRN Reason: Anxiety Transmission Status: Pending to [facility]/pharmacy #[id number] Referrals: Kristen Murphy [Primary Care Provider] - - Critical Care Critical Care Time: No Attestation: On , the high probability of a clinically significant, sudden or life threatening deterioration of the following system(s) required my full and direct attention, intervention and personal management. The time I documented below is in addition to time spent performing reported procedures but includes the following listed in this critical care notation. Medical Decision Making - Medical Records Medical records reviewed: Yes: I reviewed the patient's medical records. - Cuong Inquiry Pt receiving controlled substance: No Vital Signs: 05/24/21 18:47 05/24/21 19:00 05/24/21 19:30 Temperature 100.0 F H Temperature Source Oral Pulse Rate 92 H 96 H Pulse Rate [Right] 103 H Respiratory Rate 16 16 22 Blood Pressure 149/84 H 128/86 Blood Pressure [Right Arm] 143/87 H Blood Pressure Mean [Right Arm] 105 Blood Pressure Position [Right Arm] Sitting 02 Sat by Pulse Oximetry 95 96 99 Oxygen Delivery Method Room Air 05/24/21 19:55 Temperature 98.2 F Temperature Source Pulse Rate 91 H Pulse Rate [Right] Respiratory Rate 15 Blood Pressure 153/91 H Blood Pressure [Right Arm] Blood Pressure Mean [Right Arm] Blood Pressure Position [Right Arm] 02 Sat by Pulse Oximetry Oxygen Delivery Method - Lab Data Lab results reviewed: Yes: I reviewed the patient's lab results. Lab Results 05/24/21 18:48: WBC 13.9 H, RBC 4.46 L, Hgb 12.6 L, Hct 37.0 L, MCV 83.0, MCH 28.4, MCHC 34.2, RDW 15.5, Plt Count 168, MPV 9.0, Neut % (Auto) 68.6, Lymph % (Auto) 22.2, [place] % (Auto) 6.4, Eos % (Auto) 2.4, Baso % (Auto) 0.3, Neut # (Auto) 9.5 H, Lymph # (Auto) 3.1, [place] # (Auto) 0.9, Eos # (Auto) 0.3, Baso # (Auto) 0.0 05/24/21 18:48: Sodium 136, Potassium 4.1, Chloride 102, Carbon Dioxide 26, Anion Gap 12.1, BUN 16, Creatinine 1.00, Estimated Creat Clear 178, Estimated GFR 80, Est GFR ( Amer) 97, Glucose 152 H, Calcium 8.8, CK-MB (CK-2) 1.3, Troponin I < 0.01, NT-Pro-B Natriuret Pep 104 05/24/21 18:48: D-Dimer 0.37 05/24/21 19:52: VBG pH 7.42 H, VBG pCO2 33.8 L, VBG pO2 94.0 H, VBG HCO3 21.5 L, VBG Total CO2 22.5 L, VBG O2 Saturation 97.3 H, VBG Base Excess -3.0 L Result diagrams: 05/24/21 18:48 05/24/21 18:48 Orders (Tests/Meds): ORDERS Category Date Time Status XR chest portable Stat Exams 05/24/21 18:57 Taken Troponin I Q3H Lab 05/24/21 22:00 Ordered Troponin I Q3H Lab 05/25/21 01:00 Ordered Arterial Blood Gas Routine RT 05/24/21 19:50 Received Venous Blood Gas Stat RT 05/24/21 18:57 Ordered - Radiology Data #1 Image(s): Chest Image Reviewed: Yes I reviewed the patient's radiology results Preliminary Findings: Normal/NAD - ECG Data Tracing #1 ECG initial impression date: 05/24/21 ECG initial impression time: 18:50 ECG normal with no acute: arrhythmias, ischemia, conduction abnormalities, chamber hypertrophy Normal Sinus Rhythm: Yes Arrhythmias present: sinus tach Chest Pain HPI - General Chief Complaint: Chest Pain Stated Complaint: CHEST PAIN Time Seen by Provider: 05/24/21 18:50 Source of Information: Patient - History of Present Illness HPI narrative: This is a 46-year-old male presents via EMS with chest pain. Patient reports chest pain is been ongoing for 2 to 3 weeks. He reports his is sharp and intermittent over the middle of the chest without radiation. Pain is rated at 8 out of 10 at intensity without palliating or provoking symptoms. Patient also endorses shortness of breath. He denies any diaphoresis or nausea or vomiting. He d
--- NOTE | 2021-05-24 18:57 | ECG_ITS ---
APPROVED REPORT Exam: Resting ECG HR:102 bpm ECG Measurements Heart Rate 102 AXES IL 152 P 37 QRSd 76 QRS 58 QT 316 T 31 QTc 411 Conclusion Sinus tachycardia Otherwise normal ECG Electronically signed by : Parrish Phan, 05/25/2021 08:52:45
--- NOTE | 2021-05-24 18:57 | XR_ITS ---
PROCEDURE INFORMATION: Exam: XR Chest Exam date and time: 05/24/2021 6:57 PM Age: 46 years old Clinical indication: Chest wall pain; Additional info: Cp and left arm pain TECHNIQUE: Imaging protocol: XR of the chest. Views: 1 view. COMPARISON: CR XR CHEST 2V 08/03/2019 4:35 PM FINDINGS: Lungs: Unremarkable. No consolidation. Pleural spaces: Unremarkable. No pleural effusion. No pneumothorax. Heart/Mediastinum: Unremarkable. No cardiomegaly. Bones/joints: Unremarkable. IMPRESSION: No acute findings.
[2021-05-24 19:00] VITALS: BP 149/84; PULSE 92; RESP 16; O2SAT 96
[2021-05-24 19:05] LABS: Basophils % 0.3 % (0.1-2.0); Eosinophils # 0.3 K/mm3 (0.0-0.4); Eosinophils % 2.4 % (0.1-12.0); Hemoglobin 12.6 g/dL (14.1-18.0); Lymphocytes # 3.1 K/mm3 (0.7-4.5); Lymphocytes % 22.2 % (10-50); Mean Corpuscular HGB Conc 34.2 g/dL (31.8-35.4); Mean Corpuscular Hemoglobin 28.4 pg (27.0-31.2); Monocytes # 0.9 K/mm3 (0.1-1.0); Monocytes % 6.4 % (1.7-9.3); Neutrophils # 9.5 K/mm3 (1.8-7.8); Neutrophils % 68.6 % (37.0-80.0); Platelet Count 168 K/mm3 (142-424); Red Blood Count 4.46 M/mm3 (4.60-6.20); Red Cell Distribution Width 15.5 % (11.5-17.5); White Blood Count 13.9 K/mm3 (4.8-10.8)
[2021-05-24 19:10] LABS: Anion Gap 12.1 mEq/L (5-15); Blood Urea Nitrogen 16 mg/dl (9-20); Calcium 8.8 mg/dl (8.4-10.2); Carbon Dioxide 26 mmol/L (22.0-30.0); Chloride 102 mmol/L (98-107); Creatinine Clearance Estimated 178 mL/min (50-200); Estimated Glomerular Filt Rate 80 ml/min (>60); GFR (African American) 97 ML/MIN (>60); Glucose 152 mg/dl (74-100); Potassium 4.1 mmoL/L (3.5-5.1); Sodium 136 mmol/L (136-145)
[2021-05-24 19:15] LABS: D-Dimer 0.37 ug/mL (0.0-0.5)
[2021-05-24 19:24] LABS: Creatine Kinase MB 1.3 ng/ml (0.0-2.03); NT Pro Brain Natriuretic Pep. 104 pg/mL (0-125)
[2021-05-24 19:30] VITALS: BP 128/86; PULSE 96; RESP 22; O2SAT 99
[2021-05-24 19:39] LABS: Troponin I < 0.01 ng/ml (0.00-0.034)
[2021-05-24 19:56] LABS: VBG HCO3 21.5 mmol/L (23-30); VBG Oxygen Saturation 97.3 % (50-70); VBG PCO2 33.8 mmol/L (35-51); VBG PH 7.42 mmol/L (7.31-7.41); VBG Total CO2 22.5 mmol/L (23-27)
[2021-05-24 20:34] VITALS: BP 142/90; PULSE 89; RESP 20; TEMP 36.9; O2SAT 99
== END 2021-05-24 20:38 | disposition home or self-care (01) ==
PROVIDERS: Emergency Provider Emergency Medicine; PCP Nurse Practitioner Family
DX: R07.89 Other chest pain (principal); I10 Essential (primary) hypertension; J45.909 Unspecified asthma, uncomplicated; F17.210 Nicotine dependence, cigarettes, uncomplicated; Z88.0 Allergy status to penicillin; Z88.5 Allergy status to narcotic agent; R06.09 Other forms of dyspnea
CPT/HCPCS: 71045; 80048; 82553; 82803; 83880; 84484; 85025; 85378; 93005; 99283

== ENCOUNTER 2021-05-27 17:32 | Emergency (ER) | payer MEDICARE, OTHER, SELFPAY ==
--- NOTE | 2021-05-27 17:33 | XR_ITS ---
PROCEDURE INFORMATION: Exam: XR Chest Exam date and time: 05/27/21 05:33 PM Age: 46 years old Clinical indication: Shortness of breath; Additional info: Short of breath TECHNIQUE: Imaging protocol: XR of the chest. Views: 1 view. COMPARISON: CR XR CHEST PORTABLE 05/24/21 07:05 PM FINDINGS: Lungs: Unremarkable. No consolidation. Pleural spaces: Unremarkable. No pleural effusion. No pneumothorax. Heart/Mediastinum: Unremarkable. No cardiomegaly. Bones/joints: Unremarkable. IMPRESSION: No acute findings.
[2021-05-27 17:34] VITALS: BP 120/80; PULSE 97; RESP 20; O2SAT 97; BMI 37.8
--- NOTE | 2021-05-27 17:35 | HMH.EDGENADL ---
ED Disposition Clinical Impression: Left arm cellulitis, COPD exacerbation Disposition: Home, Self-Care Condition on Discharge: Good Instructions: DI for Emphysema, DI for Chronic Obstructive Pulmonary Disease, DI for Cellulitis -- Adult Prescriptions: Sulfamethoxazole/Trimethoprim [Bactrim DS tablet] 1 each PO BID #14 tab Transmission Status: Pending to [id number] predniSONE [Prednisone 20mg Tab] 40 mg PO DAILY #10 tab Transmission Status: Pending to [id number] Azithromycin [Z-Vineet 250mg Tab] 250 mg PO DIRECTED #6 tab Transmission Status: Pending to [id number] Time of Disposition: 18:38 - Critical Care Critical Care Time: No Attestation: On , the high probability of a clinically significant, sudden or life threatening deterioration of the following system(s) required my full and direct attention, intervention and personal management. The time I documented below is in addition to time spent performing reported procedures but includes the following listed in this critical care notation. Medical Decision Making - Medical Records Medical records reviewed: Yes: I reviewed the patient's medical records. - Cuong Inquiry Pt receiving controlled substance: No Vital Signs: 05/27/21 17:34 05/27/21 17:45 05/27/21 17:50 Pulse Rate 89 89 Pulse Rate [Right] 97 H Respiratory Rate 20 16 Blood Pressure 120/80 Blood Pressure [Right Arm] 120/80 Blood Pressure Mean [Right Arm] 93 02 Sat by Pulse Oximetry 97 97 Oxygen Delivery Method Room Air - Lab Data Lab Results 05/27/21 17:33: VBG pH 7.41, VBG pCO2 29.0 L, VBG pO2 123.7 H, VBG HCO3 18.1 L, VBG Total CO2 19.0 L, VBG O2 Saturation 98.8 H, VBG Base Excess -6.5 L 05/27/21 17:45: WBC 9.8 D, RBC 4.88, Hgb 13.9 L, Hct 39.6 L, MCV 81.1, MCH 28.6, MCHC 35.2, RDW 15.2, Plt Count 217 D, MPV 8.6, Neut % (Auto) 54.7, Lymph % (Auto) 32.7, [place] % (Auto) 5.9, Eos % (Auto) 6.0, Baso % (Auto) 0.7, Neut # (Auto) 5.3, Lymph # (Auto) 3.2, [place] # (Auto) 0.6, Eos # (Auto) 0.6 H, Baso # (Auto) 0.1 05/27/21 17:45: Sodium 137, Potassium 4.4, Chloride 105, Carbon Dioxide 23, Anion Gap 13.4, BUN 17, Creatinine 0.90, Estimated Creat Clear 189, Estimated GFR 91, Est GFR ( Amer) 110, Glucose 133 H, Calcium 9.1, Total Bilirubin 0.4, AST 41, ALT 64, Alkaline Phosphatase 111, Troponin I < 0.01, NT-Pro-B Natriuret Pep 40.5, Total Protein 8.1, Albumin 4.4, Globulin 3.7 H, Albumin/Globulin Ratio 1.2 Result diagrams: 05/27/21 17:45 05/27/21 17:45 Orders (Tests/Meds): ED MEDICATIONS Discontinued Medications Generic Name Dose Route Start Last Admin Trade Name Freq PRN Reason Stop Dose Admin Albuterol/Ipratropium 3 ml 05/27/21 17:40 05/27/21 17:50 Ipratropium/Albuterol 3 Ml Neb IH 05/27/21 17:41 3 ml ONCE ONE Administration Ibuprofen 600 mg 05/27/21 18:34 05/27/21 18:36 Ibuprofen 600 Mg Tablet PO 05/27/21 18:35 600 mg ONCE ONE Administration Methylprednisolone Sodium Succinate 125 mg 05/27/21 17:40 05/27/21 17:50 Methylprednisolone Sod Succ 125mg Vial IV 05/27/21 17:41 125 mg ONCE ONE Administration ORDERS Category Date Time Status Troponin I Q3H Lab 05/27/21 20:45 Ordered Troponin I Q3H Lab 05/27/21 23:45 Ordered ECG Request by /Nse Stat Y 05/27/21 17:33 Ordered Medical Decision Narrative: In summary this is a 46-year-old male with history of COPD, tobacco abuse, IV drug use presenting to the emergency department with shortness of breath. Patient clinically stable on arrival. Elevated respiratory rate. Oxygen saturation is 98% on room air. Differential diagnoses include COPD exacerbation, pneumonia, bronchitis, CAD. Will obtain CBC, CMP, chest x-ray, EKG, troponin profile, BNP EKG shows sinus rhythm without evidence of ischemia or arrhythmia. Chest x-ray reassuring. No focal opacity. No multifocal pneumonia. Laboratory results also are reassuring. No CO2 retention or acido
[2021-05-27 17:45] VITALS: BP 120/80; PULSE 89; RESP 16; O2SAT 97
[2021-05-27 17:50] VITALS: PULSE 86; PULSE 89
--- NOTE | 2021-05-27 17:51 | PC.NURSE ---
RESP IN WITH PT
[2021-05-27 17:56] LABS: Basophils # 0.1 K/mm3 (0-0.2); Basophils % 0.7 % (0.1-2.0); Eosinophils # 0.6 K/mm3 (0.0-0.4); Hematocrit 39.6 % (42.0-52.0); Hemoglobin 13.9 g/dL (14.1-18.0); Lymphocytes # 3.2 K/mm3 (0.7-4.5); Lymphocytes % 32.7 % (10-50); Mean Corpuscular HGB Conc 35.2 g/dL (31.8-35.4); Mean Corpuscular Hemoglobin 28.6 pg (27.0-31.2); Mean Corpuscular Volume 81.1 fl (80-94); Mean Platelet Volume 8.6 fl (7.4-10.4); Monocytes # 0.6 K/mm3 (0.1-1.0); Monocytes % 5.9 % (1.7-9.3); Neutrophils # 5.3 K/mm3 (1.8-7.8); Neutrophils % 54.7 % (37.0-80.0); Platelet Count 217 K/mm3 (142-424); Red Blood Count 4.88 M/mm3 (4.60-6.20); Red Cell Distribution Width 15.2 % (11.5-17.5); White Blood Count 9.8 K/mm3 (4.8-10.8)
[2021-05-27 17:58] LABS: Chloride 105 mmol/L (98-107); Potassium 4.4 mmoL/L (3.5-5.1); Sodium 137 mmol/L (136-145)
[2021-05-27 18:01] LABS: Alanine Aminotransferase 64 U/L (12-78); Albumin Level 4.4 g/dl (3.5-5.0); Albumin/Globulin Ratio 1.2 (1.1-1.8); Alkaline Phosphatase 111 U/L (38-126); Anion Gap 13.4 mEq/L (5-15); Aspartate Amino Transferase 41 U/L (17-59); Bilirubin,Total 0.4 mg/dl (0.2-1.3); Blood Urea Nitrogen 17 mg/dl (9-20); Calcium 9.1 mg/dl (8.4-10.2); Carbon Dioxide 23 mmol/L (22.0-30.0); Creatinine Clearance Estimated 189 mL/min (50-200); Estimated Glomerular Filt Rate 91 ml/min (>60); GFR (African American) 110 ML/MIN (>60); Globulin 3.7 g/dL (1.3-3.2); Glucose 133 mg/dl (74-100); Total Protein,Serum 8.1 g/dl (6.3-8.2)
--- NOTE | 2021-05-27 18:02 | ECG_ITS ---
APPROVED REPORT Exam: Resting ECG HR:81 bpm ECG Measurements Heart Rate 81 AXES AL 144 P 47 QRSd 82 QRS 52 QT 344 T 42 QTc 399 Conclusion Normal sinus rhythm Normal ECG Electronically signed by : Parrish Phan, 05/29/2021 14:30:59
[2021-05-27 18:07] LABS: VBG Base Excess -6.5 mmol/L (-2.4-2.3); VBG HCO3 18.1 mmol/L (23-30); VBG Oxygen Saturation 98.8 % (50-70); VBG PH 7.41 mmol/L (7.31-7.41); VBG PO2 123.7 mmol/L (28-40)
[2021-05-27 18:10] LABS: NT Pro Brain Natriuretic Pep. 40.5 pg/mL (0-125)
[2021-05-27 18:14] LABS: Troponin I < 0.01 ng/ml (0.00-0.034)
[2021-05-27 19:02] VITALS: BP 121/70; PULSE 75; RESP 17; TEMP 36.8; O2SAT 98
== END 2021-05-27 19:07 | disposition home or self-care (01) ==
PROVIDERS: Emergency Provider Emergency Medicine; PCP Nurse Practitioner Family
DX: L03.114 Cellulitis of left upper limb (principal); J44.1 Chronic obstructive pulmonary disease with (acute) exacerbation; I25.10 Atherosclerotic heart disease of native coronary artery without angina pectoris; F20.9 Schizophrenia, unspecified
CPT/HCPCS: 71045; 80053; 82803; 83880; 84484; 85025; 93005; 96374; 99283

== ENCOUNTER 2021-11-27 20:12 | Emergency (ER) | payer MEDICARE, OTHER, SELFPAY ==
[2021-11-27 20:04] VITALS: BP 168/103; PULSE 87; RESP 18; TEMP 36.7; O2SAT 96; BMI 40.6
--- NOTE | 2021-11-27 20:26 | XR_ITS ---
PROCEDURE INFORMATION: Exam: XR Chest Exam date and time: 11/27/2021 8:26 PM Age: 46 years old Clinical indication: Cough; Additional info: Cough, iv drug abuse TECHNIQUE: Imaging protocol: XR of the chest. Portable AP upright exam 8:37 p.m. Views: 1 view. COMPARISON: CR XR CHEST PORTABLE 05/27/2021 5:50 PM FINDINGS: Lungs: There is new hazy opacity in the left lingula compared with the prior exam from 05/27/2021, partially obscuring the lower left heart border, which could be small focus of pneumonia versus increased atelectasis or scarring. Right lung is unremarkable. Pleural spaces: Unremarkable. No significant pleural effusion. No pneumothorax. Heart/Mediastinum: Cardiac size appears within upper limits normal, considering portable AP technique. Overlying media monitor electrodes. Bones/joints: There is no evidence of acute fracture. IMPRESSION: Mild hazy airspace opacity in the left lingula, indeterminate for small focus of pneumonia, versus atelectasis and scarring.
[2021-11-27 20:39] LABS: Basophils # 0.3 K/mm3 (0-0.2); Basophils % 5.2 % (0.1-2.0); Eosinophils # 0.2 K/mm3 (0.0-0.4); Eosinophils % 2.4 % (0.1-12.0); Hematocrit 45.9 % (42.0-52.0); Hemoglobin 15.3 g/dL (14.1-18.0); Mean Corpuscular HGB Conc 33.4 g/dL (31.8-35.4); Mean Corpuscular Hemoglobin 28.5 pg (27.0-31.2); Mean Corpuscular Volume 85.3 fl (80-94); Mean Platelet Volume 8.8 fl (7.4-10.4); Monocytes # 0.5 K/mm3 (0.1-1.0); Monocytes % 7.9 % (1.7-9.3); Neutrophils # 2.7 K/mm3 (1.8-7.8); Neutrophils % 42.7 % (37.0-80.0); Platelet Count 314 K/mm3 (142-424); Red Blood Count 5.37 M/mm3 (4.60-6.20); White Blood Count 6.4 K/mm3 (4.8-10.8)
[2021-11-27 20:48] LABS: Alanine Aminotransferase 68 U/L (12-78); Albumin Level 4.5 g/dl (3.5-5.0); Albumin/Globulin Ratio 1.4 (1.1-1.8); Alkaline Phosphatase 97 U/L (38-126); Anion Gap 14.1 mEq/L (5-15); Aspartate Amino Transferase 56 U/L (17-59); Bilirubin,Total 0.4 mg/dl (0.2-1.3); Blood Urea Nitrogen 14 mg/dl (9-20); Calcium 9.1 mg/dl (8.4-10.2); Carbon Dioxide 24 mmol/L (22.0-30.0); Chloride 100 mmol/L (98-107); Creatinine Clearance Estimated 178 mL/min (50-200); Estimated Glomerular Filt Rate 80 ml/min (>60); Ethyl Alcohol 167 mg/dl (0-10); GFR (African American) 97 ML/MIN (>60); Globulin 3.3 g/dL (1.3-3.2); Glucose 147 mg/dl (74-100); Potassium 4.1 mmoL/L (3.5-5.1); Sodium 134 mmol/L (136-145); Total Protein,Serum 7.8 g/dl (6.3-8.2)
[2021-11-27 20:53] LABS: C-Reactive Protein 4.1 mg/L (0-4)
[2021-11-27 20:58] LABS: Lactic Acid 1.4 mmol/L (0.7-2.1)
[2021-11-27 21:00] VITALS: BP 129/99; PULSE 85; RESP 17; O2SAT 95
--- NOTE | 2021-11-27 21:01 | HMH.EDAMS ---
ED Disposition Clinical Impression: Amphetamine abuse, COVID-19 Alcohol intoxication Qualifiers: Complication of substance-induced condition: with unspecified complication Qualified Code(s): F10.929 - Alcohol use, unspecified with intoxication, unspecified Mastoiditis Qualifiers: Laterality: left Qualified Code(s): H70.92 - Unspecified mastoiditis, left ear Disposition: Home, Self-Care Condition on Discharge: Good Instructions: DI for Alcohol Use Disorder, DI for Mastoiditis-Adult, DI for COVID-19 (Suspected or Confirmed ) Additional Instructions: see pcp for follow up and use meds and consider drug treatment center Prescriptions: cephALEXin [cephALEXin 500mg capsule*] 500 mg PO TID #30 cap Transmission Status: [id number] clindamycin HCL [Cleocin HCl] 300 mg PO TID #30 cap Transmission Status: Pending to [facility]/pharmacy #[id number] Referrals: Provider,Referral, MD [Primary Care Provider] - - Critical Care Critical Care Time: No Attestation: On 11/27/21, the high probability of a clinically significant, sudden or life threatening deterioration of the following system(s) required my full and direct attention, intervention and personal management. The time I documented below is in addition to time spent performing reported procedures but includes the following listed in this critical care notation. Medical Decision Making - Medical Records Medical records reviewed: Yes: I reviewed the patient's medical records. - Cuong Inquiry Pt receiving controlled substance: No Vital Signs: 11/27/21 20:04 Temperature 98.1 F Temperature Source Oral Pulse Rate [Right Radial] 87 Respiratory Rate 18 Blood Pressure [Right Arm] 168/103 H Blood Pressure Mean [Right Arm] 124 Blood Pressure Source [Right Arm] Automatic Cuff Blood Pressure Position [Right Arm] Sitting 02 Sat by Pulse Oximetry 96 Oxygen Delivery Method Room Air - Lab Data Lab results reviewed: Yes: I reviewed the patient's lab results. Lab Results 11/27/21 20:08: WBC 6.4, RBC 5.37, Hgb 15.3, Hct 45.9, MCV 85.3, MCH 28.5, MCHC 33.4, RDW 16.0, Plt Count 314, MPV 8.8, Neut % (Auto) 42.7, Lymph % (Auto) 47.0, [place] % (Auto) 7.9, Eos % (Auto) 2.4, Baso % (Auto) 5.2 H, Neut # (Auto) 2.7, Lymph # (Auto) 3.0, [place] # (Auto) 0.5, Eos # (Auto) 0.2, Baso # (Auto) 0.3 H 11/27/21 20:08: Sodium 134 L, Potassium 4.1, Chloride 100, Carbon Dioxide 24, Anion Gap 14.1, BUN 14, Creatinine 1.00, Estimated Creat Clear 178, Estimated GFR 80, Est GFR ( Amer) 97, Glucose 147 H, Calcium 9.1, Total Bilirubin 0.4, AST 56, ALT 68, Alkaline Phosphatase 97, C-Reactive Protein 4.1 H, Total Protein 7.8, Albumin 4.5, Globulin 3.3 H, Albumin/Globulin Ratio 1.4, Procalcitonin 0.073, Salicylates < 1.0 L, Acetaminophen < 10 L 11/27/21 20:08: Lactate 1.4 11/27/21 20:08: Plasma/Serum Alcohol 167 H 11/27/21 20:22: ESR 11 11/27/21 20:55: Urine Color Yellow, Urine Appearance Clear, Urine pH 5.5, Ur Specific [place] 1.010, Urine Protein Negative, Urine Glucose (UA) Negative, Urine Ketones Negative, Urine Blood Negative, Urine Nitrate Negative, Urine Bilirubin Negative, Urine Urobilinogen 0.2, Ur Leukocyte Esterase Negative, Urine WBC Occasional, Urine Bacteria Trace, Urine Mucus Trace 11/27/21 20:55: Urine Opiates Screen Negative, Urine Methadone Screen Negative, Ur Barbituates Screen Negative, Ur Phencyclidine Scrn Negative, Ur Amphetamines Screen Positive H, U Benzodiazepines Scrn Negative, Urine Cocaine Screen Negative, U Marijuana (THC) Screen Negative 11/27/21 21:06: SARS-CoV-2 (PCR) Detected A, Influenza A Untype (PCR) Not detected, Influenza Type B (PCR) Not detected Result diagrams: 11/27/21 20:08 11/27/21 20:08 Orders (Tests/Meds): ORDERS Category Date Time Status Blood Culture Stat Micro 11/27/21 20:08 Received - CT Data CT Scan: Head Time Received: 23:[address] Reviewed: Yes: I have viewed the radiologist's interpretation Preliminary Findings: Abnormal (see re
[2021-11-27 21:04] LABS: Acetaminophen < 10 ug/ml (10-30); Salicylate < 1.0 mg/dL (2.0-20.0)
[2021-11-27 21:07] LABS: Procalcitonin 0.073 ng/mL (0.0-2.0)
[2021-11-27 21:09] LABS: Erythrocyte Sedimentation Rate 11 mm/hr (0-15)
[2021-11-27 21:10] LABS: Influenza A, PCR Not Detected (NotDetected); Influenza B, PCR Not Detected (NotDetected)
[2021-11-27 21:10] LABS: Microscopic, Urine URINE MICROSCOPIC (MICROSCOPIC)
--- NOTE | 2021-11-27 21:26 | PC.NURSE ---
Pt has been argumentative with staff since arrival to ED. Pt has requested multiple times for staff to call his ride home which we have done 3 times. Yusra is his neighbor who is his ride home. [phone]. Multiple RN and supervisor electronic testing has been into room to assist pt with various requests and to settle pt.
[2021-11-27 21:31] LABS: Coronavirus 19, PCR Detected (NotDetected)
--- NOTE | 2021-11-27 21:53 | CT_ITS ---
PROCEDURE INFORMATION: Exam: CT Head Without Contrast Exam date and time: 11/27/2021 9:53 PM Age: 46 years old Clinical indication: Pain; Headache not specified; Additional info: BERRY TECHNIQUE: Imaging protocol: Computed tomography of the head without contrast. Radiation optimization: All CT scans at this facility use at least one of these dose optimization techniques: automated exposure control; mA and/or kV adjustment per patient size (includes targeted exams where dose is matched to clinical indication); or iterative reconstruction. COMPARISON: HEADWO CT head/brain wo con 08/06/2018 10:36 AM FINDINGS: Brain: No acute intracranial findings. No intracranial hemorrhage. No edema, swelling or mass-effect. No significant white matter disease. No definite change compared with 05/08/2018. Chronic minimal fatty deposits in the posterior right cavernous sinus series 3, images 20-21. Cerebral ventricles: The ventricles are normal for age. No hydrocephalus. Paranasal sinuses: There is mild chronic sinusitis, with mucosal thickening in the ethmoid, maxillary, and inferior left frontal sinuses, which appears slightly worsened compared with the prior exam. No acute air-fluid levels. There is a 1.2 cm mucous retention cyst or polyp at the floor of the right maxillary sinus. Mastoid air cells: There is new severe left mastoid opacification compared with the prior exam. There are some minimal soft tissue densities in the attic and abutting the left ossicular chain in the middle ear coronal series 1001, image 45, but no fluid opacification of the left middle ear cavity. No acute findings in the right mastoid. Orbital cavity: No acute findings in the orbits, as visualized. Bones/joints: Chronic nasal bone fracture deformities compared with 2018.No acute skull fracture. No lytic lesions. Soft tissues: There are no soft tissue masses or fluid collections. IMPRESSION: 1. Acute left mastoiditis, versus effusion of other etiology; extensive new left mastoid opacification compared with the prior exam. 2. Mild chronic sinusitis appears worsened in the interval, no sinus air-fluid levels. 3. No acute intracranial findings.There is no CT evidence of intracranial mass, intracranial hemorrhage, or acute infarct. 4. Additional nonemergency and chronic findings as above.
[2021-11-27 21:55] LABS: Appearance,Urine CLEAR (Clear); Bilirubin,Urine Negative (Negative); Blood, Urine Negative (Negative); Color,Urine YELLOW (Yellow); Glucose,Urine (UA) Negative (Negative); Ketones,Urine Negative (Negative); Leukocyte Esterase,Urine Negative (Negative); Nitrate,Urine Negative (Negative); PH,Urine 5.5 (5.0-8.5); Protein,Urine Negative (Negative); Urobilinogen,Urine 0.2 EU/dl (0.2)
[2021-11-27 22:04] LABS: Bacteria,Urine Trace /lpf; Mucus,Urine Trace /lpf; WBC,Urine Occasional #/hpf (0-3)
[2021-11-27 22:07] LABS: Benzodiazepines Screen,Urine Negative ng/ml (<200)
[2021-11-27 22:08] LABS: Amphetamine/Metha Screen,Urine Positive ng/ml (<1000)
[2021-11-27 22:09] LABS: Barbiturates Screen,Urine Negative ng/ml (<200); Cannabinoid Screen,Urine Negative ng/ml (<50)
[2021-11-27 22:10] LABS: Cocaine Screen,Urine Negative ng/ml (<300); Methadone Screen,Urine Negative ng/ml (<300)
[2021-11-27 22:11] LABS: Opiate Screen,Urine Negative ng/ml (<300)
[2021-11-27 22:12] LABS: Phencyclidine Screen,Urine Negative ng/ml (<25)
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
--- NOTE | 2021-11-27 23:04 | PC.NURSE ---
Multiple attempts made to get ahold of Yusra with no answer.
--- NOTE | 2021-11-27 23:07 | PC.NURSE ---
PD arrived at this time. They are attempting to contact Yusra.
--- NOTE | 2021-11-27 23:16 | PC.NURSE ---
PD was able to get ahold of Yusra and she stated she was on her way. pt informed and asked to stay in his isolation room.
--- NOTE | 2021-11-27 23:18 | PC.NURSE ---
2124 pt complaining about iv being painful. iv was patent but removed per request of the pt and his aggressive actions
[2021-11-27 23:33] VITALS: BP 126/85; PULSE 86; RESP 18; TEMP 37.2; O2SAT 95
== END 2021-11-28 00:19 | disposition home or self-care (01) ==
PROVIDERS: Emergency Provider Emergency Medicine
DX: U07.1 COVID-19 (principal); F10.929 Alcohol use, unspecified with intoxication, unspecified; F19.10 Other psychoactive substance abuse, uncomplicated; H70.92 Unspecified mastoiditis, left ear; L03.113 Cellulitis of right upper limb; F33.1 Major depressive disorder, recurrent, moderate; I10 Essential (primary) hypertension; F17.210 Nicotine dependence, cigarettes, uncomplicated; Z79.899 Other long term (current) drug therapy
CPT/HCPCS: 70450; 71045; 80053; 80305; 80329; 81001; 83605; 84145; 85025; 85651; 86140; 87040; 87077; 99283; C9803; U0003; U0005

== ENCOUNTER 2022-08-15 09:04 | Emergency (ER) | payer MEDICARE, OTHER, SELFPAY ==
[2022-08-15 09:17] VITALS: BP 146/83; PULSE 85; RESP 20; TEMP 36.8; O2SAT 94; BMI 44.9
--- NOTE | 2022-08-15 09:23 | XR_ITS ---
PROCEDURE INFORMATION: Exam: XR Chest Exam date and time: 08/15/2022 9:25 AM Age: 47 years old Clinical indication: Shortness of breath; Additional info: Acute SOB TECHNIQUE: Imaging protocol: Radiologic exam of the chest. Views: 2 views. COMPARISON: CR XR CHEST PORTABLE 11/27/2021 8:36 PM FINDINGS: Lungs: Opacity in the left base may represent atelectasis or pneumonia.. Pleural spaces: Unremarkable. No pleural effusion. No pneumothorax. Heart/Mediastinum: Unremarkable. No cardiomegaly. Bones/joints: Unremarkable. IMPRESSION: Opacity in the left base may represent atelectasis or pneumonia..
[2022-08-15 09:29] VITALS: BP 146/83; PULSE 85; RESP 23; TEMP 36.8; O2SAT 92; BMI 45.0
--- NOTE | 2022-08-15 09:47 | EXP.UTC ---
Discharge Plan Disposition Patient Disposition: Home, Self-Care Condition: Good Prescriptions Prescriptions: New levofloxacin 500 mg tablet 500 mg PO DAILY Qty: 7 0RF methylprednisolone 4 mg Tablets,Dose Pack 4 mg PO DIRECTED Qty: 21 0RF albuterol sulfate 2.5 mg /3 mL (0.083 %) solution for nebulization 2.5 mg inhalation Q6H PRN (Reason: shortness of breath) Qty: 90 0RF benzonatate [benzonatate] 100 mg capsule 100 mg PO TIDP PRN (Reason: Cough) Qty: 30 0RF No Action hydroxyzine HCl 50 MG tablet 50 mg PO Q8H PRN (Reason: Anxiety) Qty: 30 0RF prednisone 50 MG tablet 50 mg PO DAILY 5 Days Qty: 5 0RF sulfamethoxazole-trimethoprim 1 EACH tablet 1 each PO BID Qty: 14 0RF prednisone 20 MG tablet 40 mg PO DAILY Qty: 10 0RF azithromycin 250 MG tablet 250 mg PO DIRECTED Qty: 6 0RF Rx Instructions: Take two (2) tablets on day #1, then one (1) tablet day #2 thru #5 cephalexin 500 MG capsule 500 mg PO TID Qty: 30 0RF clindamycin HCl 300 MG capsule 300 mg PO TID Qty: 30 0RF Referrals Follow up/Referrals: Nahid Robertson [Primary Care Provider] - See instructions Activity Restrictions/Add. Instructions Additional Instructions/Restrictions: Drink plenty of fluids. Take tylenol or ibuprofen for pain or fever. Take the medications as directed. Follow up with your regular doctor. GO TO THE ER FOR ANY WORSENING SYMPTOMS Don't start the oral steroids until tomorrow, since you had the shot here today. I STRONGLY URGE YOU TO ALLOW UP TO TRANSFER YOU TO THE ER AT THIS TIME. Clinical Impressions Clinical Impression: COPD exacerbation Instructions Patient Instructions: Chronic Obstructive Pulmonary Disease Discharge ED Provider: Luis Baldwin [facility] General Stated complaint: soa, left rib pain Mode of Arrival: Wheelchair Source of Information: Patient Time Seen by Provider: 08/15/22 09:47 Description of Symptoms (Recalled from Triage Doc. by RN): pt comes in with c/o shortness of breath, left rib pain. pt hx of copd/ pt states for two days he has had cough, and he now thinks he may have broken a rib from coughing. HEENT Symptoms (Recalled from RN notes): No Resp Symptoms (Recalled from RN notes): Yes Skin Symptoms (Recalled from RN notes): No MS Symptoms (Recalled from RN notes): Yes Functional Status (Recalled from RN notes): n/a History of Present Illness Provider Complaint: He is here with shortness of breath, cough, and left lower rib pain. He states that he began coughing worse around 2 days ago. He has a history of copd. He has coughed so much that he thinks he has injured a rib in his left lower chest. He states that if he breathes deep, coughs or pushes on his left lower ribs it is very painful. He refuses transfer to the er for his chest pain and shortness of breath. Related Data Previous Rx's Medication Instructions Recorded prednisone 50 mg tablet 50 mg PO DAILY 5 days #5 tabs 07/26/19 hydroxyzine HCl 50 mg tablet 50 mg PO Q8H PRN Anxiety #30 tabs 05/24/21 azithromycin 250 mg tablet 250 mg PO DIRECTED #6 tabs 05/27/21 prednisone 20 mg tablet 40 mg PO DAILY #10 tabs 05/27/21 sulfamethoxazole 800 1 each PO BID #14 tabs 05/27/21 mg-trimethoprim 160 mg tablet cephalexin 500 mg capsule 500 mg PO TID #30 caps 11/27/21 clindamycin HCl 300 mg capsule 300 mg PO TID #30 caps 11/27/21 albuterol sulfate 2.5 mg/3 mL 2.5 mg (3 mL) inhalation Q6H PRN 08/15/22 (0.083 %) solution for nebulization shortness of breath #90 vials benzonatate 100 mg capsule 100 mg PO TIDP PRN Cough #30 caps 08/15/22 levofloxacin 500 mg tablet 500 mg PO DAILY #7 tabs 08/15/22 methylprednisolone 4 mg tablets in 4 mg PO DIRECTED #21 tabs 08/15/22 a dose pack Allergies Allergy/AdvReac Type Severity Reaction Status Date / Time hydrocodone [HYDROCODONE] Allergy Unknown Verified 08/15/22 09:33 Penicillins [PENICILLINS] Allergy Unknown Verified 08/15/22 09
[2022-08-15 10:17] VITALS: BP 146/83; PULSE 85; RESP 23; TEMP 36.8
[2022-08-15 10:48] VITALS: PULSE 85; O2SAT 96
== END 2022-08-15 10:25 | disposition home or self-care (01) ==
PROVIDERS: Emergency Provider Nurse Practitioner Family; PCP Family Medicine
DX: J44.1 Chronic obstructive pulmonary disease with (acute) exacerbation (principal); R07.81 Pleurodynia; R05.9 Cough, unspecified; F41.9 Anxiety disorder, unspecified; F17.210 Nicotine dependence, cigarettes, uncomplicated; Z79.51 Long term (current) use of inhaled steroids; Z79.52 Long term (current) use of systemic steroids; Z79.899 Other long term (current) drug therapy; Z88.0 Allergy status to penicillin; Z88.5 Allergy status to narcotic agent; Z88.6 Allergy status to analgesic agent; Z99.3 Dependence on wheelchair
CPT/HCPCS: 71046; 96372; 99213; G0463

== ENCOUNTER 2024-02-29 10:45 | Outpatient (CLI) | payer MEDICARE, SELFPAY ==
--- NOTE | 2024-02-29 10:49 | XR_ITS ---
FINAL REPORT CLINICAL HISTORY: L ant hip COMPARISON: None FINDINGS: 3 images of the left hip were obtained. There is no evidence of fracture or dislocation. The joint spaces are intact. There are cystic changes in both the left superior femoral head and the left acetabulum. The largest cyst in the superior femoral head measures 2.2 cm in diameter, the largest in the acetabulum measures 1.5 cm in diameter. There is no soft tissue abnormality identified. IMPRESSION: Cystic changes as described in the left superior femoral head and left acetabulum without significant joint space narrowing. Would suggest either CT or MR imaging for further evaluation. Reviewed, Interpreted and Dictated by Arian Taylor MD Transcribed by Rachel Raphael Authenticated and . [facility]
== END 2024-02-29 23:59 | disposition home or self-care (01) ==
LOC: RAD 10:47
PROVIDERS: PCP Nurse Practitioner Family; Visit Provider Nurse Practitioner Family
DX: M25.552 Pain in left hip (principal)
CPT/HCPCS: 73502

== ENCOUNTER 2025-05-01 14:03 | Emergency (ER) | payer MEDICARE, OTHER, SELFPAY ==
--- NOTE | 2025-05-01 14:10 | ECG_ITS ---
APPROVED REPORT Exam: Resting ECG HR:89 bpm ECG Measurements Heart Rate 89 AXES AZ 161 P 28 QRSd 94 QRS 41 QT 348 T 15 QTc 395 Conclusion SINUS RHYTHM POSSIBLE INFERIOR MYOCARDIAL INFARCTION , PROBABLY OLD [30 ms Q WAVE IN II/aVF] BORDERLINE ECG UNCONFIRMED REPORT Electronically signed by : BRANDI CERON, 05/02/2025 06:31:33
--- NOTE | 2025-05-01 14:13 | PC.NURSE ---
FSBS 106 at this time
[2025-05-01 14:14] VITALS: BP 142/99; PULSE 90; RESP 20; TEMP 37.1; O2SAT 96; BMI 31.6
--- NOTE | 2025-05-01 14:20 | CT_ITS ---
FINAL REPORT TECHNIQUE: Axial imaging of the head was obtained without contrast. This study was performed with techniques to keep radiation doses as low as reasonably achievable, (ALARA). Individualized dose reduction techniques using automated exposure control or adjustment of mA and/or kV according to the patient''s size were employed. CLINICAL HISTORY: visual change COMPARISON: 11/27/2021 FINDINGS: The ventricles are normal in size. There is no evidence of hemorrhage. No masses are identified. No extra-axial fluid is seen. The sinuses are normal. There is no acute osseous abnormality. IMPRESSION: No acute intracranial abnormality. Reviewed, Interpreted and Dictated by Miguel Magaña MD Transcribed by Lisa Castro Authenticated and . [facility]
--- NOTE | 2025-05-01 14:24 | CT_ITS ---
FINAL REPORT TECHNIQUE: After the administration of intravenous contrast, axial images were obtained through the abdomen and pelvis by computed tomography. This study was performed with technique to keep radiation doses as low as reasonably achievable, (ALARA). Individualized dose reduction techniques using automated exposure control or adjustment of the MA and/or KV according to the patient's size were employed. CLINICAL HISTORY: left sided abdominal pain COMPARISON: 03/17/2017 FINDINGS: Abdomen: The lung bases are clear. The liver is normal in size and attenuation. There is cholelithiasis without acute gallbladder disease. The spleen is unremarkable. The adrenals are normal. The pancreas is unremarkable. The kidneys enhance appropriately. The aorta is normal in caliber. There is no free fluid or adenopathy. Bowel is unremarkable. Pelvis: There are no findings of appendicitis. The urinary bladder is unremarkable. There is no free fluid or adenopathy. There are small bilateral inguinal hernias. There is partial visualization of a large left scrotal hydrocele. IMPRESSION: No findings to account for left abdominal pain. Cholelithiasis. Left scrotal hydrocele. Reviewed, Interpreted and Dictated by Miguel Magaña MD Transcribed by Lisa Castro Authenticated and [facility]
--- NOTE | 2025-05-01 14:26 | XR_ITS ---
FINAL REPORT TECHNIQUE: Single view chest CLINICAL HISTORY: short of breath COMPARISON: 08/15/2022 FINDINGS: A single view of the chest was obtained. The heart and mediastinum are within normal limits. The lungs are clear. There is no pneumothorax. IMPRESSION: No acute cardiopulmonary process. Reviewed, Interpreted and Dictated by Miguel Magaña MD Transcribed by Lisa Castro Authenticated and [facility]
[2025-05-01 14:34] LABS: Basophils # 0.1 K/mm3 (0-0.2); Basophils % 0.7 % (0.1-2.0); Eosinophils # 0.3 Kmm3 (0.0-0.4); Eosinophils % 2.7 % (0.1-12.0); Hematocrit 44.9 % (42.0-52.0); Immature Granulocytes # 0.04 10^3uL; Immature Granulocytes % 0.4 %; Lymphocytes % 29.4 % (10-50); Mean Corpuscular HGB Conc 33.4 g/dL (31.8-35.4); Mean Corpuscular Hemoglobin 29.2 pg (27.0-31.2); Mean Corpuscular Volume 87.5 fl (80-94); Mean Platelet Volume 11.8 fl (7.4-10.4); Monocytes # 1.2 K/mm3 (0.1-1.0); Monocytes % 11.6 % (1.7-9.3); Neutrophils # 5.6 K/mm3 (1.8-7.8); Neutrophils % 55.2 % (37.0-80.0); Nucleated Red Blood Cells # 0 10^3/uL; Nucleated Red Blood Cells % 0 %; Platelet Count 203 K/mm3 (142-424); Red Blood Count 5.13 M/mm3 (4.60-6.20); Red Cell Distribution Width 13.3 % (11.5-17.5); Red Cell Distribution Width-SD 42.8 fL; White Blood Count 10.2 K/mm3 (4.8-10.8)
[2025-05-01 14:37] LABS: Albumin Level 4.8 g/dl (3.5-5.0); Chloride 98 mmol/L (98-107); Potassium 3.6 mmoL/L (3.5-5.1); Sodium 138 mmol/L (136-145)
--- NOTE | 2025-05-01 14:38 | HMH.EDGENADL ---
Discharge Plan Disposition Patient Disposition: Home, Self-Care Condition: Good Prescriptions Prescriptions: No Action lisinopril 10 mg tablet 10 mg PO DAILY Qty: 30 2RF omeprazole 20 mg capsule,delayed release(DR/EC) See Rx Instructions .ROUTE .COMPLEX Qty: 90 3RF Dose Instruction: Take 1 Capsule by mouth once daily. Rx Instructions: Take 1 Capsule by mouth once daily. albuterol sulfate 90 mcg/actuation HFA aerosol inhaler 2 inh inhalation Q4-6H Qty: 8.5 3RF meloxicam 7.5 mg tablet See Rx Instructions .ROUTE .COMPLEX Qty: 30 1RF Dose Instruction: TAKE ONE TABLET BY MOUTH TWICE DAILY NEEDED FOR PAIN Rx Instructions: TAKE ONE TABLET BY MOUTH TWICE DAILY NEEDED FOR PAIN Vraylar 1.5 mg capsule 1.5 mg PO DAILY Qty: 30 2RF cefdinir 300 mg capsule 300 mg PO BID 10 Days Qty: 20 0RF budesonide-formoterol [Symbicort] 160-4.5 mcg/actuation HFA aerosol inhaler 2 puff inhalation BID Qty: 10.2 2RF Referrals Follow up/Referrals: Provider,Referral, MD [Primary Care Provider, Medical] - See instructions Activity Restrictions/Add. Instructions Additional Instructions/Restrictions: Increase fluids and rest. Please follow-up with PCP. Clinical Impressions Clinical Impression: Dehydration Instructions Patient Instructions: Dehydration, DI for Chronic Pain -- Adult Print Language Print Language: [place] Discharge ED Provider: Taz Soto General Adult HPI <Karolina Link (ED), [employer] - Last Filed: 05/01/25 19:05> General Chief complaint: PAIN Stated complaint: Weakness Time Seen by Provider: 05/01/25 14:05 Mode of Arrival: EMS Source of Information: EMS Description of Symptoms (Recalled from ER Triage Doc. by RN): Patient presents to ED via [employer] with c/o of increased weakness, vision changes, pain to left hip and leg. Patient reports it has been going on for awhile. Patient was laying in the river on arrival per EMS. patient is A/O and able to answer all questions. History of Present Illness HPI narrative: 58-year-old male presents via EMS for a call out for a stroke however patient tells me that he was voluntarily laying in the river because it is hot outside. He says that he has been weak for for a long time with no real knowledge of how long this has been. Patient tells me that he has been experiencing numbness globally. He says he has tingling all over and has been sweating. He has no chest pain. He has had a headache for 2 weeks with changes in his vision. He says that it gets worse every day. He tells me that he has used meth for years but has not used and approximately 10 years. He says he has chronic left hip pain that has been going on more than 2 years. He says he has had it imaged several times by different doctors and he has difficulty lifting his left leg due to pain. He says he typically walks and carries his left leg due to the pain. He has had strokes in the past as well as a heart attack. He denies any alcohol use or drug use currently. He says he is prescribed several medications but only takes omeprazole for his stomach. Patient also tells me that he is homeless and lives under a bridge in [place] due to a mixup in his check. He asks me to get his personal does get for him. Patient does complain of left abdominal pain at this time. No nausea, vomiting or diarrhea at this time. No other symptoms. Related Data Previous Rx's ?Medication ?Instructions ?Recorded albuterol sulfate 90 mcg/actuation 2 inh inhalation Q4-6H #8.5 grams 11/24/24 aerosol inhaler cariprazine 1.5 mg capsule 1.5 mg PO DAILY #30 caps 11/24/24 (Vraylar) cefdinir 300 mg capsule 300 mg PO BID 10 days #20 caps 11/24/24 lisinopril 10 mg tablet 10 mg PO DAILY #30 tabs 11/24/24 meloxicam 7.5 mg tablet See Rx Instructions .Route 11/24/24 .COMPLEX #30 tabs omeprazole 20 mg capsule,delayed See Rx Instructions .Route 11/24/24 release .COMPLEX #90 caps budesonide-formoterol HFA 160 2 puff inhalation BID #10.2 grams 11/27/24 mcg-4.5 mcg/actuation aerosol inhaler (Symbicort) Allergies Allergy/AdvReac Type Severity Reaction Status Date / Time hydrocodone (HYDROCODONE) Allergy Unknown Verified 11/24/24 09:29 Penicillins (PENICILLINS) Allergy Unknown Verified 11/24/24 09:29 PFS <Karolina Link (ED), [employer] - Last Filed: 05/01/25 19:05> PFS Disclaimer: The information contained in this section may have been updated after the patient was seen, as this information can be updated by other users. Medical History Aphasia as late effect of cerebrovascular accident Bipolar disorder Social History (Updated 11/24/24 @ 09:31 by Callie Logan MA) Smoking Status: Former smoker tobacco type: cigarettes packs per day: 1 second hand exposure: Yes alcohol intake: current alcohol intake frequency: 0-2 drinks per day substance use type: former substance user current occupational status: unemployed and disabled Travel in the last 8 weeks?: None household members: family housing: apartment current occupational exposures/hazards: No caffeine: No Have you lived/traveled outside [place] in past 30 days?: No Contact w/someone who lives/traveled outside US past 30 days?: No Exposure to someone with infectious disease in past 14 days?: No Do you have a fever (greater than 100.4 F or 38 C)?: No Have you tested positive for COVID-19?: No Exposed to someone with COVID-19 in past 14 days?: No Do you have a sore throat?: No Do you have a cough?: No Do you have any weakness?: Yes Do you have any diarrhea?: No Are you experiencing any unusual bleeding?: No Do you have any muscle aches/pain?: No Do you have any abdominal pain?: No Are you experiencing loss of taste or smell?: No Other Medical History Have you received the Flu Vaccine for this season: No Have you received the Pneumonia Vaccine: No <Karolina Link (ED), [employer] - Last Filed: 05/01/25 19:05> ROS Obtained: Yes Systems reviewed as appropriate & no additional complaints except as documented Constitutional Constitutional: Reports as per HPI Physical Exam <Karolina Link (ED), [employer] - Last Filed: 05/01/25 19:05> General General appearance: alert and anxious Head Head exam: atraumatic and normocephalic Eye Eye exam: Present PERRL, EOMI and conjunctival redness (in left eye) ENT ENT exam: Present normal oropharynx and mucous membranes moist Neck Neck exam: Present normal inspection, full ROM and trachea midline Chest Chest inspection: Present normal inspection Respiratory Respiratory exam: Present normal lung sounds bilaterally Cardiovascular Cardiovascular exam: Present regular rate, normal rhythm, normal heart sounds, +S1 and +S2 Abdominal Exam Abdominal exam: Present soft and normal bowel sounds Extremities Exam Extremities exam: Present normal inspection, tenderness (To left hip) and normal capillary refill Neurological Exam Neurological exam: Present alert, oriented X3 and normal gait (Pain with left hip and lip) Skin Skin exam: Present warm, dry and intact Medical Decision Making <Karolina Link (ED), [employer] - Last Filed: 05/01/25 19:05> Medical Records Medical records reviewed: Yes I reviewed the patient's medical records. Screening: Per USPSTF and CDC recommendations, given the prevalence of disease in our region, it is our hospital?s policy to screen for HIV and viral Hepatitis for all patients aged 18 and over and those with ongoing risk factors. Cu[place] Inquiry Pt receiving controlled substance: No Cuong was queried for this patient: No Vital Signs: 05/01/25 14:14 05/01/25 15:00 05/01/25 15:30 Temperature 98.8 F Temperature Source Oral Pulse Rate 78 72 Pulse Rate [Right Brachial] 90 Respiratory Rate 20 Blood Pressure 148/92 H 134/103 H Blood Pressure [Right Arm] 142/99 H Blood Pressure Mean 111 Blood Pressure Mean [Right Arm] 113 Blood Pressure Source Blood Pressure Source [Right Arm] Automatic Cuff Blood Pressure Position Blood Pressure Position [Right Arm] Sitting 02 Sat by Pulse Oximetry 96 95 96 Oxygen Delivery Method Room Air 05/01/25 17:01 Temperature 98.8 F Temperature Source Oral Pulse Rate 80 Pulse Rate [Right Brachial] Respiratory Rate 20 Blood Pressure 142/92 H Blood Pressure [Right Arm] Blood Pressure Mean Blood Pressure Mean [Right Arm] Blood Pressure Source Automatic Cuff Blood Pressure Source [Right Arm] Blood Pressure Position Sitting Blood Pressure Position [Right Arm] 02 Sat by Pulse Oximetry Oxygen Delivery Method Room Air Lab Data Lab Results 05/01/25 14:08: WBC 10.2, RBC 5.13, Hgb 15.0, Hct 44.9, MCV 87.5, MCH 29.2, MCHC 33.4, RDW 13.3, Plt Count 203, MPV 11.8 H, Neut % (Auto) 55.2, Lymph % (Auto) 29.4, [place] % (Auto) 11.6 H, Eos % (Auto) 2.7, Baso % (Auto) 0.7, Neut # (Auto) 5.6, Lymph # (Auto) 3.0, [place] # (Auto) 1.2 H, Eos # (Auto) 0.3, Baso # (Auto) 0.1, Sodium 138, Potassium 3.6, Chloride 98, Carbon Dioxide 30, Anion Gap 13.6, BUN 36 H, Creatinine 1.30 H, Estimated Creat Clear 105, Estimated GFR 58 L, Est GFR ( Amer) 71, Glucose 109 H, Calcium 9.4, Magnesium 2.2, Total Bilirubin 1.4 H, AST 61 H, ALT 97 H, Alkaline Phosphatase 85, Total Creatine Kinase 278 H, Troponin I < 0.01, Total Protein 8.1, Albumin 4.8, Globulin 3.3 H, Albumin/Globulin Ratio 1.5, Lipase 64, HCV Ab MICHAEL w/Rflx PCR Qn Reactive, HIV Ag/Ab Combo Qual Negative 05/01/25 14:08 05/01/25 14:08 Orders (Tests/Meds): ED MEDICATIONS Discontinued Medications Generic Name Dose Route Start Last Admin Trade Name Freq PRN Reason Stop Dose Admin Diphenhydramine HCl 25 mg 05/01/25 14:25 05/01/25 14:40 Diphenhydramine 50mg/Ml Vial IV 05/01/25 14:26 25 mg ONCE ONE Administration Sodium Chloride 1,000 mls @ 999 mls/hr 05/01/25 14:25 05/01/25 14:39 Sod Chlor 0.9% 1000ml Bag IV 05/01/25 15:25 999 mls/hr .Q1H1M ONE Administration Ketorolac Tromethamine 30 mg 05/01/25 14:05/01/25 14:40 Ketorolac 30mg/Ml Vial IV 05/01/25 14:26 30 mg ONCE ONE Administration Metoclopramide HCl 10 mg 05/01/25 14:25 05/01/25 14:40 Metoclopramide Hcl 10mg/2ml Vial IVP 05/01/25 14:26 10 mg ONCE ONE Administration ORDERS Category Date Time Status CT abdomen pelvis w con Stat Cat Scan 05/01/25 14:[address] head/brain wo con Stat Cat Scan 05/01/25 14:20 Completed Chest XR -- portable [XR chest portable] Stat Exams 05/01/25 14:26 Completed CBC [Complete Blood Count Auto Diff] Stat Lab 05/01/25 14:08 Completed Comprehensive Metabolic Panel Stat Lab 05/01/25 14:08 Completed Creatine Kinase Stat Lab 05/01/25 14:08 Completed HCV RNA PCR, Quant Stat Lab 05/01/25 14:08 Received HIV Combo Stat Lab 05/01/25 14:08 Completed Hepatitis C Ab Qual. W/ RFX Stat Lab 05/01/25 14:08 Completed Lipase Stat Lab 05/01/25 14:08 Completed Magnesium Stat Lab 05/01/25 14:08 Completed Trop I [Troponin I] Stat Lab 05/01/25 14:08 Completed Medical Decision Narrative: patient is a 50-year-old male presenting to the emergency department for evaluation of headache, weakness and diaphoretic feeling. He says he is weak all over and laid in the river to cool off. Patient is hemodynamically stable and nontoxic-appearing upon arrival, afebrile. Differential diagnosis includes dehydration, heat exhaustion, stroke, among others. Workup will be conducted with hematologic labs, specific imaging, provocative tests. Initial inventions include crystalloid bolus, analgesics. Initial workup reviewed by me hematologic labs are remarkable for slightly elevated renal function but this is likely from the dehydration. Patient looks and feels much better after Toradol and Benadryl with Reglan to treat for the headache and he received IV fluids. Formal imaging read remarkable for nothing acute. Please see report from radiology for full report. Upon repeat evaluation patient's pain is improved. Patient safe for discharge home. <Taz Soto MD - Last Filed: 05/02/25 10:36> Vital Signs: 05/01/25 14:14 05/01/25 15:00 05/01/25 15:30 Temperature 98.8 F Temperature Source Oral Pulse Rate 78 72 Pulse Rate [Right Brachial] 90 Respiratory Rate 20 Blood Pressure 148/92 H 134/103 H Blood Pressure [Right Arm] 142/99 H Blood Pressure Mean 111 Blood Pressure Mean [Right Arm] 113 Blood Pressure Source Blood Pressure Source [Right Arm] Automatic Cuff Blood Pressure Position Blood Pressure Position [Right Arm] Sitting 02 Sat by Pulse Oximetry 96 95 96 Oxygen Delivery Method Room Air 05/01/25 17:01 Temperature 98.8 F Temperature Source Oral Pulse Rate 80 Pulse Rate [Right Brachial] Respiratory Rate 20 Blood Pressure 142/92 H Blood Pressure [Right Arm] Blood Pressure Mean Blood Pressure Mean [Right Arm] Blood Pressure Source Automatic Cuff Blood Pressure Source [Right Arm] Blood Pressure Position Sitting Blood Pressure Position [Right Arm] 02 Sat by Pulse Oximetry Oxygen Delivery Method Room Air Lab Data Lab Results 05/01/25 14:08: WBC 10.2, RBC 5.13, Hgb 15.0, Hct 44.9, MCV 87.5, MCH 29.2, MCHC 33.4, RDW 13.3, Plt Count 203, MPV 11.8 H, Neut % (Auto) 55.2, Lymph % (Auto) 29.4, [place] % (Auto) 11.6 H, Eos % (Auto) 2.7, Baso % (Auto) 0.7, Neut # (Auto) 5.6, Lymph # (Auto) 3.0, [place] # (Auto) 1.2 H, Eos # (Auto) 0.3, Baso # (Auto) 0.1, Sodium 138, Potassium 3.6, Chloride 98, Carbon Dioxide 30, Anion Gap 13.6, BUN 36 H, Creatinine 1.30 H, Estimated Creat Clear 105, Estimated GFR 58 L, Est GFR ( Amer) 71, Glucose 109 H, Calcium 9.4, Magnesium 2.2, Total Bilirubin 1.4 H, AST 61 H, ALT 97 H, Alkaline Phosphatase 85, Total Creatine Kinase 278 H, Troponin I < 0.01, Total Protein 8.1, Albumin 4.8, Globulin 3.3 H, Albumin/Globulin Ratio 1.5, Lipase 64, HCV Ab MICHAEL w/Rflx PCR Qn Reactive, HIV Ag/Ab Combo Qual Negative Orders (Tests/Meds): ED MEDICATIONS Discontinued Medications Generic Name Dose Route Start Last Admin Trade Name Freq PRN Reason Stop Dose Admin Diphenhydramine HCl 25 mg 05/01/25 14:25 05/01/25 14:40 Diphenhydramine 50mg/Ml Vial IV 05/01/25 14:26 25 mg ONCE ONE Administration Sodium Chloride 1,000 mls @ 999 mls/hr 05/01/25 14:25 05/01/25 14:39 Sod Chlor 0.9% 1000ml Bag IV 05/01/25 15:25 999 mls/hr .Q1H1M ONE Administration Ketorolac Tromethamine 30 mg 05/01/25 14:25 05/01/25 14:40 Ketorolac 30mg/Ml Vial IV 05/01/25 14:26 30 mg ONCE ONE Administration Metoclopramide HCl 10 mg 05/01/25 14:25 05/01/25 14:40 Metoclopramide Hcl 10mg/2ml Vial IVP 05/01/25 14:26 10 mg ONCE ONE Administration ORDERS Category Date Time Status CT abdomen pelvis w con Stat Cat Scan 05/01/25 14:[address] head/brain wo con Stat Cat Scan 05/01/25 14:20 Completed Chest XR -- portable [XR chest portable] Stat Exams 05/01/25 14:26 Completed CBC [Complete Blood Count Auto Diff] Stat Lab 05/01/25 14:08 Completed Comprehensive Metabolic Panel Stat Lab 05/01/25 14:08 Completed Creatine Kinase Stat Lab 05/01/25 14:08 Completed HCV RNA PCR, Quant Stat Lab 05/01/25 14:08 Received HIV Combo Stat Lab 05/01/25 14:08 Completed Hepatitis C Ab Qual. W/ RFX Stat Lab 05/01/25 14:08 Completed Lipase Stat Lab 05/01/25 14:08 Completed Magnesium Stat Lab 05/01/25 14:08 Completed Trop I [Troponin I] Stat Lab 05/01/25 14:08 Completed Medical Decision Narrative: patient is a 50-year-old male presenting to the emergency department for evaluation of headache, weakness and diaphoretic feeling. He says he is weak all over and laid in the river to cool off. Patient is hemodynamically stable and nontoxic-appearing upon arrival, afebrile. Differential diagnosis includes dehydration, heat exhaustion, stroke, among others. Workup will be conducted with hematologic labs, specific imaging, provocative tests. Initial inventions include crystalloid bolus, analgesics. Initial workup reviewed by me hematologic labs are remarkable for slightly elevated renal function but this is likely from the dehydration. Patient looks and feels much better after Toradol and Benadryl with Reglan to treat for the headache and he received IV fluids. Formal imaging read remarkable for nothing acute. Please see report from radiology for full report. Upon repeat evaluation patient's pain is improved. Patient safe for discharge home. I was consulted by the YAO, and we discussed the complexity of the problems being addressed. I approved the treatment and management plan for this patient's care in the Emergency Department, thus performing a substantive portion of the medical decision making. Taz Soto MD Critical Care <Karolina Link (ED), [employer] - Last Filed: 05/01/25 19:05> Critical Care Time Critical Care Time: No
[2025-05-01 14:39] LABS: Alanine Aminotransferase 97 U/L (12-78); Aspartate Amino Transferase 61 U/L (17-59); Blood Urea Nitrogen 36 mg/dl (9-20); Creatine Kinase 278 U/L (55-170); Creatinine Clearance Estimated 105 mL/min (50-200); Estimated Glomerular Filt Rate 58 ml/min (>60); GFR (African American) 71 ML/MIN (>60)
[2025-05-01] MEDS: 0.9 % SODIUM CHLORIDE 1000ML 1,000 ML 999 ML IV (14:39)
[2025-05-01 14:40] LABS: Albumin/Globulin Ratio 1.5 (1.1-1.8); Alkaline Phosphatase 85 U/L (38-126); Anion Gap 13.6 mEq/L (5-15); Bilirubin,Total 1.4 mg/dl (0.2-1.3); Calcium 9.4 mg/dl (8.4-10.2); Carbon Dioxide 30 mmol/L (22.0-30.0); Globulin 3.3 g/dL (1.3-3.2); Glucose 109 mg/dl (74-100); Lipase 64 U/L (23-300); Magnesium 2.2 mg/dl (1.6-2.3); Total Protein,Serum 8.1 g/dl (6.3-8.2)
[2025-05-01] MEDS: METOCLOPRAMIDE HCL 10MG/2ML VIAL 10 MG IVP (14:40)
[2025-05-01] MEDS: KETOROLAC 30MG/ML VIAL 30 MG IV (14:40)
[2025-05-01] MEDS: diphenhydrAMINE 50MG/ML VIAL 25 MG IV (14:40)
[2025-05-01 14:54] LABS: Troponin I < 0.01 ng/ml (0.00-0.034)
[2025-05-01 15:00] VITALS: BP 148/92; PULSE 78; O2SAT 95
[2025-05-01 15:30] VITALS: BP 134/103; PULSE 72; O2SAT 96
[2025-05-01 15:32] LABS: HIV Combo NEGATIVE (Negative)
[2025-05-01 15:41] LABS: Hepatitis C Ab Qual. W/ RFX REACTIVE (Negative)
[2025-05-01 17:01] VITALS: BP 142/92; PULSE 80; RESP 20; TEMP 37.1; O2SAT 97
== END 2025-05-01 17:12 | disposition home or self-care (01) ==
PROVIDERS: Nurse Practitioner; Emergency Provider Emergency Medicine
DX: E86.0 Dehydration (principal); R53.1 Weakness; Z59.02 Unsheltered homelessness
CPT/HCPCS: 70450; 71045; 74177; 80053; 82550; 83690; 83735; 84484; 85025; 86803; 87389; 87522; 93005; 96361; 96374; 96375; 99285; J1200; J1885; J2765; J7030